=== PATIENT | female | born 1940 | race Caucasian/White ===

== ENCOUNTER 2019-05-27 12:08 | Outpatient (NON) | payer OTHER, SELFPAY | END 2019-12-28 08:18 | disposition home or self-care (01) | PROVIDERS: PCP Family Medicine; Visit Provider Orthopaedic Surgery | DX: T84.84XD Pain due to internal orthopedic prosthetic devices, implants and grafts, subsequent encounter (principal); Z96.651 Presence of right artificial knee joint | CPT/HCPCS: 87070; 87075; 87205 ==

== ENCOUNTER 2019-12-07 08:02 | Outpatient (CLI) | payer OTHER, SELFPAY ==
--- NOTE | ~2019-12-07 | NM_ITS ---
EXAMINATION: NM bone scan whole body DATE: 12/07/2019 11:43 INDICATION: Pain due to internal orthopedic prosthetic devices. TECHNIQUE: 25 mCi Tc-99m HDP was administered intravenously. Delayed whole-body scintigrams were obt ained. COMPARISON: Right knee radiographs 09/13/2019, CT 05/20/2019, chest 2 views 01/12/2019 FINDINGS: There is a total right knee arthroplasty. There is increased activity in right patella. The re is increased activity in distal femur and proximal tibia adjacent to the right knee arthroplasty. There is increased activity at right sternoclavicular joint correlating with osteoarthritis on radiog raphs. There is increased activity at the acromioclavicular joints correlating with osteoarthritis on radiographs. There is multifocal increased activity in thoracic spine correlating with spondylosis o n radiographs. There is joint-centered increased activity in the hands and in left knee and left foot without radiographic comparison, likely osteoarthritis. IMPRESSION: 1. Total right knee arthroplasty. Increased activity adjacent to the arthroplasty is not specific and may be seen with loosening or infection or may be a normal finding. Reviewed, dictated and finalized at location B. IMPRESSION: 1. Total right knee arthroplasty. Increased activity adjacent to the arthroplas ty is not specific and may be seen with loosening or infection or may be a norm al finding.
== END 2019-12-07 08:03 | disposition home or self-care (01) ==
PROVIDERS: PCP Emergency Medicine; Visit Provider Orthopaedic Surgery
DX: M79.18 Myalgia, other site (principal); T84.84XA Pain due to internal orthopedic prosthetic devices, implants and grafts, initial encounter; Z96.651 Presence of right artificial knee joint
CPT/HCPCS: 78306; A9561

== ENCOUNTER → 2019-12-09 12:57 | Outpatient (CLI) | payer OTHER, SELFPAY ==
--- NOTE | ~2019-12-09 | DEXA_ITS ---
Bone Density Report Name: Viktoriya Robb I Age: 79 Sex: Female Ethnicity: White Date of : 1940 Indication: osteopenia; height loss; hysterectomy; Referring Provider: MORIAH PRASAD Study: Bone densitometry was performed. Exam Date: December 09, 2019 Accession number: [id number] Bone Density: Region BMD T-score Z-score Classification AP Spine (L1-L4) 0.769 -2.5 0.1 Osteoporosis Femoral Neck (Left) 0.795 -0.5 1.8 Normal Total Hip (Left) 0.672 -2.2 -0.2 Osteopenia Femoral Neck (Right) 0.556 -2.6 -0.4 Osteoporosis Total Hip (Right) 0.615 -2.7 -0.7 Osteoporosis Total Hip Mean 0.644 -2.5 -0.5 Osteopenia World Health Organization criteria for BMD impression classify patients as: Normal (T-score at or above -1.0), Osteopenia (T-score between -1.0 and -2.5), or Osteoporosis (T-score at or below -2.5). 10-year Fracture Risk: FRAX not reported because: Some T-score for Spine Total or Hip Total or Femoral Neck at or below -2.5 Previous Exams: Region Exam Age BMD T-score BMD Change BMD Change Date g/cm2 vs Baseline vs Previous AP Spine(L1-L4) 12/09/2019 79 0.769 -2.5 -0.016 -0.016 11/19/2013 73 0.785 -2.4 Total Hip(Left) 12/09/2019 79 0.672 -2.2 -0.075* -0.075* 11/19/2013 73 0.746 -1.6 Total Hip(Right) 12/09/2019 79 0.615 -2.7 -0.125* -0.125* 11/19/2013 73 0.740 -1.7 *Denotes significance at 95% confidence level, LSC for AP Spine = 0.022 g/cm2, LSC for Total Hip = 0.027 g/cm2 Clinical Information Provided by Patient: Has the following medical conditions: Hysterectomy Patient maximum height was 61.5 Menopause Age: 26 No regular weight bearing exercise Drinks caffeinated beverages Onset of menses at age 11 Number of children 3 Impression: The patient has osteoporosis, based on the Right Total Hip T-score. The BMD for the Total Hip(Left) decreased, changing by -0.075 since the last DXA exam. The BMD for the Total Hip(Right) decreased, changing by -0.125 since the last DXA exam. Discussion: INCREASED RISK OF FRACTURE. BONE DENSITY IS UNDESIRABLY LOW AT ONE OR MORE SKELETAL SITES, CONSISTENT WITH POSTMENOPAUSAL OSTEOPOROSIS. This patient's lowest T-score meets the World Health Organization's (WHO) criteria for osteoporosis at one or more sites (T-score -2.5 or below). In untreated patients, the risk of osteoporotic fracture increases approximately two-fold for each 1.0 SD decrease in
--- NOTE | ~2019-12-09 | MM_ITS ---
EXAMINATION: MM screening singh BI w tita HISTORY: Screening TECHNIQUE: Craniocaudal and mediolateral oblique 3-D tomosynthesis images were obtained and synthetic 2-D images were generated. CAD analysis was submitted and interpreted. COMPARISON: Comparison to multiple prior studies sequentially, with oldest reviewed study dated 09/21. BREAST PARENCHYMAL COMPOSITION: There are scattered areas of fibroglandular density. FINDINGS: There is no evidence of suspicious mass, calcification, or architectural distortion to sugg est malignancy in either breast. There has been no suspicious interval change. IMPRESSION: 1. No mammographic evidence of malignancy. 2. Recommend routine screening mammography in one year. BI-RADS Category 1: Negative Reviewed, dictated and finalized at location A.
== END ==
PROVIDERS: PCP Emergency Medicine; Visit Provider Emergency Medicine
DX: Z12.31 Encounter for screening mammogram for malignant neoplasm of breast (principal); Z78.0 Asymptomatic menopausal state; M85.89 Other specified disorders of bone density and structure, multiple sites; M81.0 Age-related osteoporosis without current pathological fracture
CPT/HCPCS: 77063; 77067; 77080

== ENCOUNTER 2019-12-27 01:34 | Outpatient (CLI) | payer OTHER, SELFPAY ==
[2019-12-27 16:17] LABS: SARS-CoV-2 RNA PCR Negative
== END 2019-12-27 01:35 | disposition home or self-care (01) ==
LOC: ANHCOVIDDT 01:34
PROVIDERS: PCP Emergency Medicine; Visit Provider Orthopaedic Surgery
DX: Z01.812 Encounter for preprocedural laboratory examination (principal); Z20.828 Contact with and (suspected) exposure to other viral communicable diseases
CPT/HCPCS: 87635; C9803; U0003

== ENCOUNTER 2019-12-30 19:00 | Observation (INO) | payer OTHER, SELFPAY ==
[2019-12-23 10:38] VITALS: BMI 23.2
[2019-12-29] VITALS (12 sets, daily range): BP systolic 102–157; BP diastolic 53–84; PULSE 80–115; RESP 12–20; TEMP 36–36.9; O2SAT 92–100; BMI 30.4
--- NOTE | 2019-12-29 06:47 | WPDANESEPPF ---
Anes - Initial Pre Proc Eval Procedure: Operation Date: 12/29/19 07:30 Proposed Procedures p Right Patella Resurfacing With Poly Exchange - Adonay Vaca MD Date/Time: 12/29/19 06:47 Surgeon: Adonay Vaca MD Pre Op Diagnosis: Right Patella Femoral Arthritis Patient Data Age: 79 Gender: F Height: 5 ft Weight: 53.99 kg Allergies Allergy/AdvReac Type Severity Reaction Status Date / Time celecoxib Allergy Unknown stomach Verified 12/23/19 10:31 pain glimepiride Allergy Unknown Diarrhea Verified 12/23/19 10:31 meloxicam Allergy Unknown diarrhea Verified 12/23/19 10:31 metformin Allergy Unknown Diarrhea Verified 12/23/19 10:31 sitagliptin Allergy Unknown unknown Verified 12/23/19 10:31 Wmumlqa-Sfe-Mkr Reductase Allergy Unknown myalgia Verified 12/23/19 10:31 Inhibitor Home Medications Medication Instructions Recorded Confirmed Type amlodipine 10 mg tablet 10 mg PO DAILY #90 tablet 05/19/19 12/23/19 Rx blood sugar diagnostic #300 each 06/09/19 12/13/19 Rx quetiapine 25 mg tablet 25 mg PO HS tablet 11/05/19 12/23/19 History chlorhexidine gluconate 4 % 1 applic TOPICAL ONCE #237 ml 12/14/19 12/23/19 Rx topical liquid lisinopril 10 mg tablet 10 mg PO DAILY #90 tablet 12/15/19 12/23/19 Rx levothyroxine 100 mcg capsule 100 mcg PO DAILY #90 cap 12/17/19 12/23/19 Rx alendronate 70 mg tablet 70 mg PO WEEKLY #30 tablet 12/20/19 12/23/19 Rx clonazepam 0.5 mg PO .QHS PRN 12/23/19 12/23/19 History Patient hx anesthesia problems: none Family hx anesthesia problems: none PMFSH Past Medical History Medical History Cataracts, bilateral Chicken pox Hernia HTN (hypertension) Hypoglycemia Kidney stones (~2015) Psychiatric care PTSD (post-traumatic stress disorder) Thyroid disorder Twisting of colon on long axis (~2000) Vitamin D deficiency disease Surgical History Surgical History H/O thyroidectomy (~2008) History of appendectomy (~1949) History of hysterectomy (~1970) History of Min fundoplication (~2014) History of removal of both ovaries (~1983) Family History Family History Father Acute myocardial infarction Family history of coronary artery disease, Onset Age: 56 Mother Acute myocardial infarction Family history of malignant neoplasm of ovary Other Diabetes mellitus Family history of blood dyscrasia Family history of cardiovascular disease Family history of malignant neoplasm Hypertension Social History Social History Smoking status: Never smoker Alcohol intake: never Substance use: current Substance use type: marijuana Other substance usage details: ONE OR TWO HITS EVERY NIGHT TO HELP SLEEP X 40 YRS Living arrangements: alone Spiritual care concerns: No Anes - Eval Final PreProcedure Day of Procedure 12/29/19 06:47 Patient weight: normal Heart: regular rate and rhythm Lungs: clear to auscultation Airway: Mallampati scale class II Neurological: alert and oriented Last oral intake: >/= 8 hours ASA classification: III Emergent: no Anesthetic plan: proceed Anesthesia type and monitoring: general LMA and standard monitoring Informed Consent: The patient's anesthetic plan and its attendant risks and benefits were discussed with the patient/family/POA. Questions were solicited and answers provided to the satisfaction of the patient/family/POA.
[2019-12-29] MEDS: ACETAMINOPHEN 500 MG TABLET 1000 MG PO (06:48)
[2019-12-29] MEDS: LACTATED RINGERS 1,000 ML 30 ML IV CONT (06:50)
--- NOTE | 2019-12-29 07:22 | WPDHPUPDATE1 ---
History and Physical Update Update Date/Time: 12/29/19 07:22 History and Physical has been reviewed, including an updated exam of the patient. There are NO changes in the patient's condition. Risks, benefits, and alternatives have been discussed and questions answered. Patient agrees to proceed with procedure.
[2019-12-29] MEDS: ceFAZolin 2 GM/D5W 50 ML 2 GM/50 ML BAG IVPB ×3 (07:27→23:16)
[2019-12-29] MEDS: TRANEXAMIC ACID 1,000 MG/10 ML AMPUL 1000 MG IV PUSH (07:58)
--- NOTE | 2019-12-29 10:30 | PM.OP ---
Procedure Note - Brief Procedure Note - Brief Date of procedure: 12/29/19 Pre-op diagnosis: Right Patella Femoral Arthritis Post-op diagnosis: same Procedure performed: right knee patella resurfacing with poly exchange. Anesthesia: GLMA Surgeon: Adonay Vaca MD Estimated blood loss (mL): 50 Drains: No Packing: No Pathology: none sent Complications: No immediate complications Condition: stable Disposition: PACU
--- NOTE | 2019-12-29 10:31 | PM.PROC ---
Procedure Note - Detailed Date of procedure: 12/29/19 Pre-op diagnosis: Right Patella Femoral Arthritis Post-op diagnosis: same Procedure performed: RIGHT PATELLA RESURFACING WITH POLY EXCHANGE Description of procedure: PATIENT WAS TAKEN TO THE OR AND GEN ANESTHESIA WAS PREFORMED. THE RIGHT KNEE WAS PREPPED AND DRAPED IN THE STERILE FASHION. THE INCISION WAS MADE OVER THE OLD SCAR. ARTHROTOMY WAS MADE AND THE PATELLA WAS EVERTED. THE PATELLA WAS PREPARED AND EXPOSED. THE THICKNESS OF THE PATELLA WAS 22 MM. ABOUT 6.5 MM WERE REMOVED FROM THE PATELLA USING A CUTTING GUIDE. A 31 MM PATELLA BUTTON GUIDE WAS USED TO DRILL 3 HOLES IN THE MOST MEDIAL 1/2 OF THE PATELLA. A PATELLA IMPLANT TRIAL MEASURING 31 MM WITH 6.3 MM OF THICKNESS WAS PLACED. THE OLD POLY COMPONENT WAS REMOVED FROM THE TIBIAL TRAY. A 10 MM CR POLY TRIAL WAS PLACED. THE KNEE CAME OUT TO FULL EXTENSION. THE PATELLA TRACKED WELL WITH NO TILT. THE KNEE WAS WELL BALANCED IN FLEXION AND EXTENSION WITH VARUS AND VALGUS STRESS. THE TRIAL COMPONENTS WERE REMOVED. THE KNEE WAS IRRIGATED THOROUGHLY. THE FEMORAL AND TIBIAL COMPONENTS WERE CHECKED AT THE BONE CEMENT INTERFACE AND THE COMPONENT CEMENT INTERFACE AND THERE WAS NO DISRUPTION OF THE IMPLANT OR ANY LOOSENING. A 10 MM CR POLY COMPONENT WAS LOCKED IN TO PLACE. A 31 MM PATELLA IMPLANT WAS CEMENTED IN TO PLACE. THE KNEE WAS TAKEN THROUGH A ROM AGAIN AND FOUND TO BE STABLE WITH GOOD TRACKING OF THE PATELLA AND NO TILT. VARUS VALGUS STABILITY WAS ASSESSED AND THE KNEE WAS STABLE. A CALIPER WAS USED TO MEASURE THE THICKNESS OF THE PATELLA WITH THE IMPLANT AND IT MEASURED 22 MM THUS RESTORING THE ORIGINAL PATELLA THICKNESS PRIOR TO ARTHROPLASTY. THE WOUND WAS THEN IRRIGATED FOR 3 MIN USING STERILE BETADINE AND WATER THEN WASHED OUT THOROUGHLY. THE ARTHROTOMY WAS REPAIRED WITH 1 VICRYL, THE SUB CUTANEOUS LAYER WITH 2-0 VICRYL AND THE SKIN WITH SOLITARIO. STERILE DRESSING WAS APPLIED WITH. PATIENT WAS EXTUBATED. Anesthesia: GLMA Surgeon: Adonay Vaca MD Estimated blood loss (mL): 50 Drains: No Complications: No immediate complications Condition: stable Disposition: PACU
[2019-12-29] MEDS: ONDANSETRON INJ 4 MG/2 ML VIAL IV PUSH ×3 (10:48→20:48)
[2019-12-29 11:02] LABS: Glucose Point of Care 203 (65-105)
[2019-12-29] MEDS: diphenhydrAMINE HCl INJ 50 MG/ML VIAL 25 MG IV PUSH (11:15)
[2019-12-29] MEDS: MORPHINE SULFATE 4 MG/ML INJ IV PUSH (12:04)
[2019-12-29] MEDS: oxyCODONE/ACETAMINOPHEN 5-325 MG TABLET 1 TABLET PO ×2 (16:13→20:47)
[2019-12-29] MEDS: PHARMACIST COMMUNICATION ORDER 1 EACH XX (16:15)
[2019-12-29] MEDS: DOCUSATE SODIUM 100 MG CAPSULE PO (16:16)
[2019-12-29] MEDS: CELECOXIB 200 MG CAPSULE PO (18:53)
[2019-12-29] MEDS: FAMOTIDINE 20 MG TABLET PO (20:38)
[2019-12-29] MEDS: QUEtiapine FUMARATE 25 MG TABLET PO (20:38)
--- NOTE | 2019-12-29 20:44 | PM.IMCN ---
Assessment and Plan Assessment and plan (1) S/P right knee surgery: Code(s): Z98.890 - Other specified postprocedural states Status: Acute Assessment and Plan: postop care per Dr. Vaca. DVT prophylaxis per Dr. Vaca. (2) High cholesterol: Code(s): E78.00 - Pure hypercholesterolemia, unspecified Status: Acute (3) PTSD (post-traumatic stress disorder): Code(s): F43.10 - Post-traumatic stress disorder, unspecified Status: Acute Assessment and Plan: patient stated that her whole family has PTSD. She is on clonazepam. (4) HTN (hypertension): Qualifiers: Hypertension type: essential hypertension Qualified Code(s): I10 - Essential (primary) hypertension Code(s): I10 - Essential (primary) hypertension Status: Acute Assessment and Plan: Continue with amlodipine. Continue with lisinopril for (5) Osteoporosis: Code(s): M81.0 - Age-related osteoporosis without current pathological fracture Status: Chronic Assessment and Plan: Continue with Fosamax (6) Depression: Code(s): F32.9 - Major depressive disorder, single episode, unspecified Status: Acute Assessment and Plan: patient stated that she was on some psych medication that did make her feel well so she is no longer on anything for depression but is on clonazepam for anxiety. it looks like she is on Seroquel. (7) Anxiety: Code(s): F41.9 - Anxiety disorder, unspecified Status: Acute Assessment and Plan: Continue with clonazepam (8) Hypothyroidism: Code(s): E03.9 - Hypothyroidism, unspecified Status: Chronic Assessment and Plan: continue with levothyroxine. [facility] Data of Consult Consult date: 12/29/19 Requesting Physician: Adonay Vaca MD Primary Care Provider: Jamal Jordan MD Consult Narrative Narrative: Viktoriya Robb is a 79 year old female Who was here on 01/2018 for right total knee arthroplasty per Dr. Vaca. The patient stated that she was having some right knee pain and was having difficulty bending her knee and having problems with mobility. She stated her pain was severe approximately a 7 Out of [address] Vaca on 05/14/2019 in the office. She was noted to have A possible effusion to that right knee. She did have a CT scan at that time. she was evaluated and found to have no effusion in her knee. the patient was taken to surgery today for right knee patella resurfacing with poly exchange. The patient is complaining of some mild discomfort but has been up walking with a walker today. Please see anesthesia an operative note. It was noted that she had no immediate complications. The hospitalist team has been consulted for medical management and I thank Dr. Vaca for this consult. Date of service 12/29/2019 Review of Systems Review of Systems: All systems reviewed & are unremarkable except as noted in HPI and below Constitutional: Constitutional: Reports as per HPI and Reports no additional constitutional complaints Eyes: Eyes: Reports as per HPI and Reports no additional eye complaints ENT: Reports system reviewed and no additional complaints, except as documented and Reports Normal hearing present Cardiovascular: Cardiovascular: Reports no additional cardiovascular complaints Respiratory: Respiratory: Reports no additional respiratory complaints and Reports no additional respiratory complaints Gastrointestinal: Gastrointestinal: Reports as per HPI and Reports no additional gastrointestinal complaints Musculoskeletal: Musculoskeletal: Reports no additional musculoskeletal complaints Integumentary/Breasts: Skin/Breast: Reports system reviewed and no additional complaints, except as docu and Reports as per HPI Neurologic: Reports system reviewed and no additional complaints, except as documented, Reports as per HPI and Reports Normal hearing present Psychia
[2019-12-29] MEDS: clonazePAM 0.5 MG TABLET PO (20:48)
--- NOTE | ~2019-12-30 | XR_ITS ---
EXAMINATION: XR knee RT 2V DATE: 12/29/2019 10:42 INDICATION: Total right knee arthroplasty. Postop. TECHNIQUE: 2 views of right knee were obtained. COMPARISON: Right knee radiographs 09/13/2019 FINDINGS: There is a total right knee arthroplasty with new patellar resurfacing in near-anatomic ali gnment. No periprosthetic lucency to suggest loosening or infection. No fracture. There is gas in the knee joint, consistent with recent surgery. Anterior skin taylor are noted. IMPRESSION: 1. Total right knee arthroplasty in near-anatomic alignment. Reviewed, dictated and finalized at location A.
[2019-12-30 01:33] VITALS: BP 110/53; PULSE 90; RESP 20; TEMP 37; O2SAT 99
[2019-12-30] MEDS: ONDANSETRON INJ 4 MG/2 ML VIAL IV PUSH ×2 (02:22→21:17)
[2019-12-30] MEDS: oxyCODONE/ACETAMINOPHEN 5-325 MG TABLET 1 TABLET PO ×5 (02:22→21:17)
[2019-12-30 05:33] VITALS: BP 112/56; PULSE 90; RESP 18; TEMP 36.9; O2SAT 99
[2019-12-30 05:53] LABS: Basophils Absolute Auto 0.1 K/mm3 (0.0-0.1); Basophils Percent Auto 0.5 % (0.2-1.2); Eosinophils Percent Auto 0.1 % (0-4.4); Hematocrit 29.4 % (37.0-47.0); Hemoglobin 9.6 g/dL (12.0-15.0); Immature Granulocyte Absolute 0.07 K/mm3 (0.00-0.031); Immature Granulocyte Percent A 0.7 % (0-0.5); Lymphocytes Absolute Auto 0.85 K/mm3 (0.9-3.2); Lymphocytes Percent Auto 8.3 % (18.3-44.2); Mean Corpuscular HGB Conc 32.7 g/dl (32-36); Mean Corpuscular Volume 91.9 fl (80-100); Mean Platelet Volume 12.2 fl (7.4-10.4); Monocytes Absolute Auto 0.8 K/mm3 (0.1-0.6); Neutrophils Absolute Auto 8.5 K/mm3 (1.3-6.7); Neutrophils Percent Auto 82.4 % (45.5-73.1); Platelet Count Result 195 k/mm3 (150-375); White Blood Count 10.3 K/mm3 (4.5-10.0)
[2019-12-30 06:04] LABS: Anion Gap 4 mmol/L (8-16); Blood Urea Nitrogen 15 mg/dL (7-17); Calcium 8.6 mg/dL (8.4-10.2); Carbon Dioxide 28 mmol/L (22-30); Chloride 105 mmol/L (98-107); Estimated CRCL calculation 39 ml/min; Estimated Glomerular Filt Rate 60; Glucose 117 mg/dL (65-105); Potassium 4.4 mmol/L (3.4-5.0); Sodium 137 mmol/L (137-145)
[2019-12-30] MEDS: LEVOTHYROXINE SODIUM 100 MCG TABLET PO (06:45)
[2019-12-30] MEDS: ceFAZolin 2 GM/D5W 50 ML 2 GM/50 ML BAG IVPB (06:46)
--- NOTE | 2019-12-30 07:37 | WPDANESPN ---
Anes - Prog Note Post-Op Date/Time: 12/30/19 07:37 Cardiovascular status: normal Respiratory status: normal Airway patency: baseline Mental status: baseline Post-Op hydration status: normal Vital Signs: Last Vital Signs Temp 36.9 C 12/30/19 05:33 Pulse 90 12/30/19 05:33 Resp 18 12/30/19 05:33 BP 112/56 L 12/30/19 05:33 Pulse Ox 99 12/30/19 05:33 I/O: Intake & Output 12/29/19 12/29/19 12/30/19 15:59 23:59 07:59 Intake Total 200 660 290 Output Total 450 Balance 200 210 290 Laboratory Tests 12/30/19 05:13 12/30/19 05:13 12/29/19 12/30/19 12/30/19 11:00 05:13 05:13 WBC 10.3 H RBC 3.20 L Hgb 9.6 L Hct 29.4 L MCV 91.9 MCH 30.0 MCHC 32.7 RDW 12.0 Plt Count 195 MPV 12.2 H Immature Gran % (Auto) 0.7 H Neut % (Auto) 82.4 H Lymph % (Auto) 8.3 L [place] % (Auto) 8.0 Eos % (Auto) 0.1 Baso % (Auto) 0.5 Lymph # (Auto) 0.85 L [place] # (Auto) 0.8 H Eos # (Auto) 0.0 Baso # (Auto) 0.1 Abs Immat Gran (auto) 0.07 H Absolute Neuts (auto) 8.5 H Absolute Nucleated RBC 0.0 Nucleated RBC % 0.0 Sodium 137 Potassium 4.4 Chloride 105 Carbon Dioxide 28 Anion Gap 4 L BUN 15 Creatinine 0.90 Estim Creat Clear Calc 39 Estimated GFR 60 Glucose 117 H POC Capillary Glucose 203 H Calcium 8.6 Post-procedural complaints: none Patient Feedback: Patient satisfied with anesthetic care.
[2019-12-30] MEDS: CELECOXIB 200 MG CAPSULE PO ×2 (08:20→16:30)
[2019-12-30] MEDS: FAMOTIDINE 20 MG TABLET PO ×2 (08:20→21:15)
[2019-12-30] MEDS: lisinopriL 10 MG TABLET PO (08:21)
[2019-12-30] MEDS: ASPIRIN 325 MG ENTERIC TABLET 650 MG PO (08:21)
[2019-12-30] MEDS: DOCUSATE SODIUM 100 MG CAPSULE PO ×2 (08:22→16:30)
[2019-12-30] MEDS: amLODIPine BESYLATE 5 MG TABLET 10 MG PO (08:22)
[2019-12-30 09:33] VITALS: BP 136/61; PULSE 87; RESP 18; TEMP 36.4; O2SAT 97
--- NOTE | 2019-12-30 11:04 | PM.IMPN ---
Progress Note: A&P Assessment and Plan (1) S/P right knee surgery: Code(s): Z98.890 - Other specified postprocedural states Status: Acute Assessment and Plan: postop care per Dr. Vaca. DVT prophylaxis per Dr. Vaca. Medical stable for discharge, pt can continue current medications on discharge. Hopeful discharge soon DR Vaca to decide. (2) High cholesterol: Code(s): E78.00 - Pure hypercholesterolemia, unspecified Status: Chronic Assessment and Plan: Diet controlled (3) PTSD (post-traumatic stress disorder): Code(s): F43.10 - Post-traumatic stress disorder, unspecified Status: Chronic Assessment and Plan: She is on clonazepam. (4) HTN (hypertension): Qualifiers: Hypertension type: essential hypertension Qualified Code(s): I10 - Essential (primary) hypertension Code(s): I10 - Essential (primary) hypertension Status: Chronic Assessment and Plan: Continue with amlodipine. Continue with lisinopril for HTN. Bp is stable at 136/61 (5) Osteoporosis: Code(s): M81.0 - Age-related osteoporosis without current pathological fracture Status: Chronic Assessment and Plan: Continue with Fosamax (6) Depression: Code(s): F32.9 - Major depressive disorder, single episode, unspecified Status: Chronic Assessment and Plan: Patient is on Quetiapine. (7) Anxiety: Code(s): F41.9 - Anxiety disorder, unspecified Status: Chronic Assessment and Plan: Continue with clonazepam (8) Hypothyroidism: Code(s): E03.9 - Hypothyroidism, unspecified Status: Chronic Assessment and Plan: Continue with levothyroxine. Subjective Date/time seen: 12/30/19 11:04 Interval history: Pleasant lady admitted yesterday for right total knee arthroplasty per Dr. Vaca. Pt is post op day 1 and is doing well. Pt is sp Right patella resurfacing with poly exchange. Pt denies any knee pain. Review of Systems Review of Systems: All systems reviewed & are unremarkable except as noted in HPI and below Constitutional: Constitutional: Denies lethargy and Denies weakness Cardiovascular: Cardiovascular: Denies no additional cardiovascular complaints Respiratory: Respiratory: Denies no additional respiratory complaints Gastrointestinal: Gastrointestinal: Denies no additional gastrointestinal complaints Genitourinary: Genitourinary: Denies no additional female genitourinary complaints Neurologic: Denies system reviewed and no additional complaints, except as documented Psychiatric: Psychiatric: Denies no additional psychiatric complaints Exam Const: General: cooperative, healthy appearing, comfortable, no acute distress, well developed, alert, awake and Physically active Nutritional Appearance: average body habitus and thin Orientation/consciousness: oriented to person, oriented to place, oriented to time and patient oriented x3 Limitations: no limitations Resp: Effort & Inspection: normal respiratory effort Auscultation: clear to auscultation bilaterally Percussion: percussion normal Cardio: Palpation: normal PMI Rate: regular rate Rhythm: regular rhythm Heart sounds: S1 normal heart sound present and S2 normal heart sound present Peripheral pulses: Peripheral pulses 2+ throughout Neuro: General: oriented to person, oriented to place, oriented to time and patient oriented x3 Cranial nerves: Yes Equal, round and reactive pupils present and Yes Normal hearing present Cognition (Neuro): normal cognition Speech: normal speech Sensory Exam: normal sensation Extrem: Right lower extremity: knee ( dressing to right knee dry and intact. Without drain Santosh wrap intact) Other: pulses present in R foot good sensation in R foot Psych: Appearance: grossly normal Mental Status: mental status grossly normal Speech and movement: Normal speech and movement present Affect: normal affect A
[2019-12-30 11:08] VITALS: BMI 30.4
--- NOTE | 2019-12-30 12:06 | PCNSR ---
On 12/30/19, the student, Rah Escobedo, provided care and completed [employer] [facility] documentation on this patient. I have reviewed the student's documentation and agree with the findings.
--- NOTE | 2019-12-30 12:34 | PM.PNORT ---
Progress Note: A&P Assessment and Plan (1) Total knee replacement status: Qualifiers: Laterality: right Qualified Code(s): Z96.651 - Presence of right artificial knee joint Code(s): Z96.659 - Presence of unspecified artificial knee joint Status: Acute Assessment and Plan: POD #1: RIGHT PATELLA RESURFACING WITH POLY EXCHANGE Continue PT/OT. WBAT. Walker. Continue pain control. Ice. FELICITAS wrap. No pillows under knee. DVT prophylaxis with Aspirin. SCDs. Incentive Spirometry. Monitor dressing. Change prior to discharge. Dispo: Home with Home Health pending progress with PT/OT Subjective Subjective Date/Time Seen: 12/30/19 12:34 POD#1: RIGHT PATELLA RESURFACING WITH POLY EXCHANGE Review of Systems Constitutional: Constitutional: Denies chills, Denies fatigue, Denies fever(s) and Denies night sweats Cardiovascular: Cardiovascular: Denies chest pain and Denies lightheadedness Respiratory: Respiratory: Denies cough, Denies dyspnea and Denies wheezing Genitourinary: Genitourinary: Denies urinary hesitancy Musculoskeletal: Musculoskeletal: Reports arthralgias (right knee ) and Reports joint swelling (right knee ) Exam Const: General: comfortable and no acute distress Resp: Effort & Inspection: normal respiratory effort Cardio: Rate: regular rate Rhythm: regular rhythm GI: Inspection: non-distended Auscultation: normal bowel sounds Skin: General skin exam: normal color Wounds: wounds noted (incision c/d/i) Neuro: Cognition (Neuro): normal cognition Speech: normal speech Sensory Exam: normal sensation Extrem: Right lower extremity: knee (incision c/d/i) Details: tenderness (diffuse knee ), swelling Location: of the patella, abnormal ROM (limited due to recent surgical intervention ), knee ligament exam normal and ecchymosis (mild ); no deformity, lower leg (negative lesley's sign ) Details: no edema, ankle (+ankle dorsiflexion/plantarflexion ) and foot (2+ pedal pulses ) Details: normal capillary refill and vascular exam Details: dorsalis pedis pulse present Psych: Mental Status: mental status grossly normal Affect: normal affect Objective Data Vital Signs Vital Signs: Vital Signs - 24 hr 12/29/19 13:33 12/29/19 17:33 12/29/19 21:33 Temperature 36.4 C L 36.9 C 36.6 C Pulse Rate 105 H 94 110 H Respiratory Rate 19 17 20 Blood Pressure 138/84 134/67 157/81 H Pulse Oximetry 100 99 98 12/30/19 01:33 12/30/19 05:33 12/30/19 09:33 Temperature 37.0 C 36.9 C 36.4 C Pulse Rate 90 90 87 Respiratory Rate 20 18 18 Blood Pressure 110/53 L 112/56 L 136/61 Pulse Oximetry 99 99 97 Intake/Output Intake/Output: Intake & Output 12/27/19 12/28/19 12/29/19 12/30/19 23:59 23:59 23:59 23:59 Intake Total 910 290 Output Total 450 300 Balance 460 -10 Meds/Results Medications: Active Medications Generic Name Dose Route Start Last Admin Trade Name Freq PRN Reason Stop Dose Admin Acetaminophen 1,000 mg 12/29/19 11:48 Tylenol Tablet PO Q6H PRN Mild Pain (1-3) Alendronate Sodium 70 mg 01/01/20 06:30 Fosamax PO Sa@0630 [facility] Amlodipine Besylate 10 mg 12/30/19 09:00 12/30/19 08:22 Norvasc PO 10 mg DAILY [facility] Administration Aspirin 650 mg 12/30/19 09:00 12/30/19 08:21 Aspirin Ec PO 650 mg DAILY [facility] Administration Celecoxib 200 mg 12/29/19 17:00 12/30/19 08:20 Celebrex PO 200 mg BIDWM [facility] Administration Clonazepam 0.5 mg 12/29/19 11:48 12/29/19 20:48 Klonopin Tablet PO 0.5 mg HS PRN Administration insomnia Diazepam 5 mg 12/29/19 11:48 Valium Po PO Q8H PRN Spasms Diphenhydramine HCl 25 mg 12/29/19 11:48 Benadryl Inj IV PUSH Q6H PRN Itching Docusate Sodium 100 mg 12/29/19 17:00 12/30/19 08:22 Colace Capsule PO 100 mg BID [facility] Administration Famotidine 20 mg 12/29/19 21:00 12/30/19 08:20 Pepcid PO 20 mg Q12HR [facility] Administration Le
[2019-12-30 13:33] VITALS: BP 129/70; PULSE 81; RESP 18; TEMP 36.4; O2SAT 98
[2019-12-30 18:24] VITALS: BP 135/72; PULSE 85; RESP 18; TEMP 37.3; O2SAT 99
[2019-12-30] MEDS: QUEtiapine FUMARATE 25 MG TABLET PO (21:15)
[2019-12-30] MEDS: clonazePAM 0.5 MG TABLET PO (21:17)
[2019-12-30 21:32] VITALS: BP 121/66; PULSE 85; RESP 16; TEMP 37.3; O2SAT 97
[2019-12-31 02:00] VITALS: BP 127/66; PULSE 86; RESP 12; TEMP 37; O2SAT 98
[2019-12-31] MEDS: oxyCODONE/ACETAMINOPHEN 5-325 MG TABLET 1 TABLET PO ×3 (02:47→14:19)
[2019-12-31 05:30] VITALS: BP 123/60; PULSE 82; RESP 16; TEMP 37.6; O2SAT 94
[2019-12-31] MEDS: LEVOTHYROXINE SODIUM 100 MCG TABLET PO (07:27)
[2019-12-31] MEDS: amLODIPine BESYLATE 5 MG TABLET 10 MG PO (08:43)
[2019-12-31] MEDS: FAMOTIDINE 20 MG TABLET PO (08:43)
[2019-12-31] MEDS: ASPIRIN 325 MG ENTERIC TABLET 650 MG PO (08:43)
[2019-12-31] MEDS: DOCUSATE SODIUM 100 MG CAPSULE PO (08:43)
[2019-12-31] MEDS: lisinopriL 10 MG TABLET PO (08:43)
[2019-12-31] MEDS: CELECOXIB 200 MG CAPSULE PO (08:43)
--- NOTE | 2019-12-31 09:10 | PM.PNORT ---
Progress Note: A&P Assessment and Plan (1) Total knee replacement status: Qualifiers: Laterality: right Qualified Code(s): Z96.651 - Presence of right artificial knee joint Code(s): Z96.659 - Presence of unspecified artificial knee joint Status: Acute Assessment and Plan: POD #2: RIGHT PATELLA RESURFACING WITH POLY EXCHANGE Continue PT/OT. WBAT. Walker. Continue pain control. Ice. FELICITAS wrap. No pillows under knee. DVT prophylaxis with Aspirin. SCDs. Incentive Spirometry. Monitor dressing. Change today before d/c Dispo: Home with Home Health likely today pending progress with PT/OT and medical clearance. Subjective Subjective Date/Time Seen: 12/31/19 09:10 POD#2: RIGHT PATELLA RESURFACING WITH POLY EXCHANGE No new complaints. Pain increased from yesterday, controlled with medication. Working well with PT/OT. Wants to go home today. Review of Systems Constitutional: Constitutional: Denies chills, Denies fatigue, Denies fever(s) and Denies night sweats Cardiovascular: Cardiovascular: Denies chest pain and Denies lightheadedness Respiratory: Respiratory: Denies cough, Denies dyspnea and Denies wheezing Genitourinary: Genitourinary: Denies urinary hesitancy Musculoskeletal: Musculoskeletal: Reports arthralgias (right knee ) and Reports joint swelling (right knee ) Exam Const: General: comfortable and no acute distress Resp: Effort & Inspection: normal respiratory effort Cardio: Rate: regular rate Rhythm: regular rhythm GI: Inspection: non-distended Auscultation: normal bowel sounds Skin: General skin exam: normal color Wounds: wounds noted (incision c/d/i) Neuro: Cognition (Neuro): normal cognition Speech: normal speech Sensory Exam: normal sensation Extrem: Right lower extremity: knee (incision c/d/i) Details: tenderness (diffuse knee ), swelling Location: of the patella, abnormal ROM (limited due to recent surgical intervention ), knee ligament exam normal and ecchymosis (mild ); no deformity, lower leg (negative lesley's sign ) Details: no edema, ankle (+ankle dorsiflexion/plantarflexion ) and foot (2+ pedal pulses ) Details: normal capillary refill and vascular exam Details: dorsalis pedis pulse present Psych: Mental Status: mental status grossly normal Affect: normal affect Objective Data Vital Signs Vital Signs: Vital Signs - 24 hr 12/30/19 09:33 12/30/19 13:33 12/30/19 18:24 Temperature 36.4 C 36.4 C L 37.3 C Pulse Rate 87 81 85 Respiratory Rate 18 18 18 Blood Pressure 136/61 129/70 135/72 Pulse Oximetry 97 98 99 12/30/19 21:32 12/31/19 02:00 12/31/19 05:30 Temperature 37.3 C 37.0 C 37.6 C Pulse Rate 85 86 82 Respiratory Rate 16 12 16 Blood Pressure 121/66 127/66 123/60 Pulse Oximetry 97 98 94 Intake/Output Intake/Output: Intake & Output 12/28/19 12/29/19 12/30/19 12/31/19 23:59 23:59 23:59 23:59 Intake Total 910 1075 250 Output Total 450 715 800 Balance 460 360 -550 Meds/Results Medications: Active Medications Generic Name Dose Route Start Last Admin Trade Name Freq PRN Reason Stop Dose Admin Acetaminophen 1,000 mg 12/29/19 11:48 Tylenol Tablet PO Q6H PRN Mild Pain (1-3) Alendronate Sodium 70 mg 01/01/20 06:30 Fosamax PO Sa@0630 [facility] Amlodipine Besylate 10 mg 12/30/19 09:00 12/31/19 08:43 Norvasc PO 10 mg DAILY MANISH Administration Aspirin 650 mg 12/30/19 09:00 12/31/19 08:43 Aspirin Ec PO 650 mg DAILY MANISH Administration Celecoxib 200 mg 12/29/19 17:00 12/31/19 08:43 Celebrex PO 200 mg BIDWM MANISH Administration Clonazepam 0.5 mg 12/29/19 11:48 12/30/19 21:17 Klonopin Tablet PO 0.5 mg HS PRN Administration insomnia Diazepam 5 mg 12/29/19 11:48 Valium Po PO Q8H PRN Spasms Diphenhydramine HCl 25 mg 12/29/19 11:48 Benadryl Inj IV PUSH Q6H PRN Itching Docusate Sodium 100 mg 12/29/19 17:00 12/31/19 08:43
--- NOTE | 2019-12-31 10:27 | PM.IMPN ---
Progress Note: A&P Assessment and Plan (1) S/P right knee surgery: Code(s): Z98.890 - Other specified postprocedural states Status: Acute Assessment and Plan: Postop care per Dr. Vaca. DVT prophylaxis per Dr. Vaca. Medical stable for discharge, pt can continue current medications on discharge. Hopeful discharge today DR Vaca to decide. (2) High cholesterol: Code(s): E78.00 - Pure hypercholesterolemia, unspecified Status: Chronic Assessment and Plan: Diet controlled (3) PTSD (post-traumatic stress disorder): Code(s): F43.10 - Post-traumatic stress disorder, unspecified Status: Chronic Assessment and Plan: She is on clonazepam. (4) HTN (hypertension): Qualifiers: Hypertension type: essential hypertension Qualified Code(s): I10 - Essential (primary) hypertension Code(s): I10 - Essential (primary) hypertension Status: Chronic Assessment and Plan: Continue with amlodipine. Continue with lisinopril for HTN. Bp is stable at 123/60 (5) Osteoporosis: Code(s): M81.0 - Age-related osteoporosis without current pathological fracture Status: Chronic Assessment and Plan: Continue with Fosamax (6) Depression: Code(s): F32.9 - Major depressive disorder, single episode, unspecified Status: Chronic Assessment and Plan: Patient is on Quetiapine. (7) Anxiety: Code(s): F41.9 - Anxiety disorder, unspecified Status: Chronic Assessment and Plan: Continue with clonazepam (8) Hypothyroidism: Code(s): E03.9 - Hypothyroidism, unspecified Status: Chronic Assessment and Plan: Continue with levothyroxine. Subjective Date/time seen: 12/31/19 10:27 Interval history: Pleasant lady admitted yesterday for right total knee arthroplasty per Dr. Vaca. Pt is post op day 2 and is doing well. Pt is sp Right patella resurfacing with poly exchange. Pt wants to go home, but is having pain and swelling in her knee. Knee pain is 10/10 today. Seen by orthopedics hopeful discharge today. Pt is medically stable for discharge. Review of Systems Review of Systems: All systems reviewed & are unremarkable except as noted in HPI and below Cardiovascular: Cardiovascular: Denies no additional cardiovascular complaints Respiratory: Respiratory: Denies no additional respiratory complaints and Reports no additional respiratory complaints Gastrointestinal: Gastrointestinal: Reports as per HPI and Denies no additional gastrointestinal complaints Musculoskeletal: Musculoskeletal: Reports no additional musculoskeletal complaints Exam Const: General: cooperative and Physically active Orientation/consciousness: oriented to person, oriented to place, oriented to time and patient oriented x3 Resp: Effort & Inspection: normal respiratory effort Auscultation: clear to auscultation bilaterally Percussion: percussion normal Cardio: Rate: regular rate Rhythm: regular rhythm Heart sounds: S1 normal heart sound present and S2 normal heart sound present GI: Inspection: normal to inspection Auscultation: normal bowel sounds Neuro: General: oriented to person, oriented to place, oriented to time and patient oriented x3 Cranial nerves: Yes Equal, round and reactive pupils present and Yes Normal hearing present Cognition (Neuro): normal cognition Speech: normal speech Gait exam (Neuro): Normal gait present Motor exam (neuro): 5/5 motor strength present throughout Sensory Exam: normal sensation Extrem: General: normal to inspection Right upper extremity: normal to inspection Left upper extremity: normal to inspection Right lower extremity: edema Details: 2+ Left lower extremity: normal to inspection Other: R knee swollen small bruise limited ROM, pain on flexion of knee, calf no tenderness, Pulses present in R foot good sensation in R foot Psych: Appearance: grossly normal Mental S
[2019-12-31 10:39] VITALS: O2SAT 94
--- NOTE | 2019-12-31 12:10 | PM.DS ---
DS: Admitting Diagnosis Admitting Diagnosis Admitting Diagnosis: Right Patella Femoral Arthritis DS: Discharge Diagnosis Discharge Diagnosis (1) Total knee replacement status: Qualifiers: Laterality: right Qualified Code(s): Z96.651 - Presence of right artificial knee joint Code(s): Z96.659 - Presence of unspecified artificial knee joint Status: Acute Assessment and Plan: POD #2: RIGHT PATELLA RESURFACING WITH POLY EXCHANGE Continue PT/OT. WBAT. Walker. Continue pain control. Ice. FELICITAS wrap. No pillows under knee. DVT prophylaxis with Aspirin. SCDs. Incentive Spirometry. Monitor dressing. Change today before d/c Dispo: Home with Home Health likely today pending progress with PT/OT and medical clearance. DS: Summary Hospital Course Reason for hospitalization: RIGHT PATELLA RESURFACING WITH POLY EXCHANGE Hospital Course: 79-year-old female with a history of right knee pain status post right total knee replacement. She was admitted status post right patellar resurfacing with a poly exchange for postoperative medical management, pain control and PT / OT. She progressed well with PT OT and her pain has been well controlled. The hospitalist service was consulted for assistance with medical management. She was cleared from a medical standpoint to be discharged home. She was cleared with PT OT to be discharged home with home health. She does have some constipation which she reports is chronic in nature. She suffers from constipation at baseline and has not had a bowel movement since prior to surgery. She is on Linzess and Colace at this time. We will discharge her home with this medication as well. She denies abdominal pain, nausea or vomiting. Her abdomen is soft and nontender. She is to contact her primary care physician if no resolution of constipation in the next 1-[address] Vaca cleared patient for discharge home. Status at Discharge Cognitive/behavioral status at discharge: stable Functional status at discharge: uses cane/walker Overall status at discharge: patient is back to baseline Time Spent with Patient Time attestation: Total time spent providing and/or coordinating discharge services: Exam Const: General: comfortable and no acute distress Resp: Effort & Inspection: normal respiratory effort Cardio: Rate: regular rate Rhythm: regular rhythm GI: Inspection: non-distended Auscultation: normal bowel sounds Skin: General skin exam: normal color Wounds: wounds noted (incision c/d/i) Neuro: Cognition (Neuro): normal cognition Speech: normal speech Sensory Exam: normal sensation Extrem: Right lower extremity: knee (incision c/d/i) Details: tenderness (diffuse knee ), swelling Location: of the patella, abnormal ROM (limited due to recent surgical intervention ), knee ligament exam normal and ecchymosis (mild ); no deformity, lower leg (negative lesley's sign ) Details: no edema, ankle (+ankle dorsiflexion/plantarflexion ) and foot (2+ pedal pulses ) Details: normal capillary refill and vascular exam Details: dorsalis pedis pulse present Psych: Mental Status: mental status grossly normal Affect: normal affect Discharge Plan Discharge Consulting providers: Brennan Thibodeaux Discharging Clinician: Dora James Anticipated Discharge Date/Time: 12/31/19 15:00 Patient Disposition: Home Health Service Activity: may shower, no driving and follow weight bearing status Diet: as tolerated Wound Care Instructions: follow printed instructions Discharge Instructions: Per Care Coordination: Home with [facility]. PT/OT/RN for Treatment and Evaluation. [phone]. They will call you for an appointment to come to your home. Post Op Total Knee Replacement Instructions Dr. Adonay Vaca ?Your dressing will be changed prior to your discharge. You will be sent home with one additional dressing to be changed in 5 days by the home health RN. Your taylor wi
--- NOTE | 2019-12-31 16:00 | PC.NURSE ---
pt did not want flu shot at this time
== END 2019-12-31 16:20 | disposition home health service (06) ==
LOC: ANHSURGERY 19:03 → ANH2MED 19:03
PROVIDERS: Admitting Provider Orthopaedic Surgery; PCP Emergency Medicine; Visit Provider Orthopaedic Surgery
PROC: (CPT 27487; principal; 2019-12-29 07:30)
DX: M17.11 Unilateral primary osteoarthritis, right knee (principal); I10 Essential (primary) hypertension; E78.00 Pure hypercholesterolemia, unspecified; E89.0 Postprocedural hypothyroidism; F43.10 Post-traumatic stress disorder, unspecified; M81.0 Age-related osteoporosis without current pathological fracture; F41.8 Other specified anxiety disorders; Z79.84 Long term (current) use of oral hypoglycemic drugs; F12.90 Cannabis use, unspecified, uncomplicated; Z86.73 Personal history of transient ischemic attack (TIA), and cerebral infarction without residual deficits; Z87.891 Personal history of nicotine dependence
CPT/HCPCS: 27486; 36415; 73560; 80048; 85025; 97110; 97116; 97161; 97165; A9270; C1713; G0378; J0171; J0690; J1100; J1170; J1200; J2250; J2270; J2370; J2405; J2704; J2795; J3010; J7120

== ENCOUNTER 2020-01-04 15:28 | Observation (INO) | payer OTHER, SELFPAY ==
[2020-01-04] VITALS (36 sets, daily range): BP systolic 99–128; BP diastolic 47–81; PULSE 83–114; RESP 12–28; TEMP 36.6–36.9; O2SAT 93–100; BMI 23.6
--- NOTE | ~2020-01-04 | XR_ITS ---
EXAMINATION: XR abdomen/kub 1V INDICATION: Constipation and abdominal pain TECHNIQUE: Supine view of the abdomen is obtained. COMPARISON: 01/05/2020 FINDINGS: No definitely dilated loops of bowel are identified. There are phleboliths of the pelvis. N o free intraperitoneal gas is seen. There is moderate right hip osteoarthritis. IMPRESSION: 1. No dilated loops of bowel evident. Reviewed, dictated and finalized at location B.
--- NOTE | ~2020-01-04 | CT_ITS ---
EXAMINATION: CT abdomen pelvis w con DATE: 01/04/2020 17:41 INDICATION: Lower abdominal pain. Constipation for 2 days. Recent knee surgery. TECHNIQUE: Computed tomography (CT) of the abdomen and pelvis was performed with 100 cc Omnipaque 350 intravenous contrast. Automated exposure control and iterative reconstruction technique were employe d. Exam dose: 269.74 mGy-cm total exam DLP. COMPARISON: 04/22/2017 CT abdomen FINDINGS: No interval pulmonary mass density at the lung bases. Stable small nodular opacities are no charlette in the lingula and left lower lobe, unchanged since 04/22/2017, consistent with benign process. Very small sliding hiatal hernia. 1.5 cm left hepatic cyst. 5 mm right hepatic dome cyst. The liver is otherwise unremarkable. The gall bladder is present. No pericholecystic fluid or inflammation. No gallbladder wall thickening. No bile duct dilatation. No pancreatic mass lesion or calcification or ductal dilatation. Normal splenic siz e. Normal morphology of the adrenal glands. There are 2 small nonobstructing lower pole left renal calculi. No right urinary tract calculus or le ft ureteral calculus or hydroureteronephrosis on either side. The urinary bladder is unremarkable. Status post hysterectomy. There is atherosclerotic calcification of the abdominal aorta and branches but no abdominal aortic an eurysm. No intraperitoneal or retroperitoneal or pelvic mass lesion or adenopathy or ascites. There is a very prominent amount of fecal material throughout the colon. There is prominent widening of the sigmoid colon, up to 7 cm diameter, with thickening and pneumatosis of the sigmoid colon wall as well as pericolic fat stranding. The findings may be consistent with stercoral colitis. There are diverticula of the sigmoid and descending colon as well as some right colon diverticula; differential diagnosis for the pericolic stranding in the sigmoid colon area includes diverticulitis. No divertic ular abscess. No intraperitoneal free air. Diffuse idiopathic skeletal hyperostosis of the thoracic spine. Diffuse osteopenia. Benign lucent area of the left iliac bone with sclerotic margin. Osteoarthritis at both hips. IMPRESSION: Prominent sigmoid colon distention with fecal material, with associated thickening and p neumatosis of the sigmoid colon wall, suggesting stercoral colitis Diverticulosis of left and right colon. Differential diagnosis for the pericolic fat stranding in the sigmoid region includes sigmoid diverticulitis. No abscess is evident. Constipation Very small sliding hiatal hernia Status post hysterectomy 2 small nonobstructing lower pole left renal calculi Hepatic cysts Reviewed, dictated and finalized at [facility]. Reviewed, dictated and finalized at [facility]. IMPRESSION: Prominent sigmoid colon distention with fecal material, with assoc iated thickening and pneumatosis of the sigmoid colon wall, suggesting stercora l colitis Diverticulosis of left and right colon. Differential diagnosis for the pericoli c fat stranding in the sigmoid region includes sigmoid diverticulitis. No absce ss is evident. Constipation Very small sliding hiatal hernia Status post hysterectomy 2 small nonobstructing lower pole left renal calculi Hepatic cysts
[2020-01-04 16:04] LABS: Basophils Absolute Auto 0.1 K/mm3 (0.0-0.1); Basophils Percent Auto 0.6 % (0.2-1.2); Eosinophils Absolute Auto 0.1 K/mm3 (0-0.3); Eosinophils Percent Auto 0.8 % (0-4.4); Hematocrit 34.2 % (37.0-47.0); Hemoglobin 11.2 g/dL (12.0-15.0); Immature Granulocyte Absolute 0.07 K/mm3 (0.00-0.031); Immature Granulocyte Percent A 0.6 % (0-0.5); Lymphocytes Absolute Auto 1.78 K/mm3 (0.9-3.2); Lymphocytes Percent Auto 15.3 % (18.3-44.2); Mean Corpuscular HGB Conc 32.7 g/dl (32-36); Mean Corpuscular Hemoglobin 30.5 pg (26-34); Mean Corpuscular Volume 93.2 fl (80-100); Mean Platelet Volume 11.9 fl (7.4-10.4); Monocytes Absolute Auto 1.1 K/mm3 (0.1-0.6); Monocytes Percent Auto 9.5 % (2.6-8.5); Neutrophils Absolute Auto 8.5 K/mm3 (1.3-6.7); Neutrophils Percent Auto 73.2 % (45.5-73.1); Platelet Count Result 357 k/mm3 (150-375); Red Blood Count 3.67 M/mm3 (4.2-5.4); White Blood Count 11.6 K/mm3 (4.5-10.0)
[2020-01-04 16:11] LABS: Add Urine Microscopic? YES; Appearance Urine Cloudy (Clear); Bacteria Urine Trace /hpf; Bilirubin Urine Negative (Negative); Blood Urine Negative (Negative); Color Urine Yellow (Yellow); Glucose Urine UA Negative (Negative); Hyaline Casts Urine 15-19 /lpf; Ketones Urine Negative (Negative); Leukocyte Esterase Ur Trace LEU/UL (Negative); Mucus Urine Rare /lpf; Nitrate Urine Negative (Negative); Protein Urine Negative (Negative); RBC Urine 0-2 /hpf (0-2); Specific Grav Ur 1.019 (1.001-1.035); Squamous Epithelial Cell Urine Many /hpf (Few); Urobilinogen Urine Negative mg/dL (<2.0)
[2020-01-04 16:18] LABS: Alanine Aminotransferase 13 U/L (4-35); Albumin Level 4.3 g/dL (3.5-5.1); Alkaline Phosphatase 90 U/L (38-126); Anion Gap 9 mmol/L (8-16); Aspartate Amino Transferase 25 U/L (14-36); Bilirubin,Total 0.8 mg/dL (0.2-1.3); Blood Urea Nitrogen 16 mg/dL (7-17); Calcium 9.3 mg/dL (8.4-10.2); Carbon Dioxide 27 mmol/L (22-30); Chloride 99 mmol/L (98-107); Estimated CRCL calculation 33 ml/min; Estimated Glomerular Filt Rate 53; Glucose 140 mg/dL (65-105); Lipase 25 U/L (23-300); Potassium 3.4 mmol/L (3.4-5.0); Sodium 135 mmol/L (137-145)
--- NOTE | 2020-01-04 16:37 | ED.ABDPAIN ---
HPI - Abdominal Pain General Chief Complaint: Abdominal Pain Stated Complaint: constipation Time Seen by Provider: 01/04/20 16:27 Source: patient Mode of arrival: ambulatory Limitations: no limitations History of Present Illness HPI narrative: 79 years old white female presents with no bowel movement for the last 2 weeks, abdominal pain mainly left side over the last few days, nausea, retching. Patient denies any fever, chills, chest pain or shortness of breath. History of hypertension, hypothyroidism, appendectomy, hysterectomy, twisted colon. Right knee surgery 18 months ago, another surgery on the same knee December 28 got discharged from the hospital few days ago. Patient been on oxycodone since December 28. Related Data Home Medications Medication Instructions Recorded Confirmed quetiapine 25 mg tablet 25 mg PO HS tablet 11/05/19 12/23/19 clonazepam 0.5 mg PO .QHS PRN 12/23/19 12/23/19 Allergies Allergy/AdvReac Type Severity Reaction Status Date / Time celecoxib Allergy Intermediate stomach Verified 01/04/20 15:50 pain Goyavfs-Okg-Eij Reductase Allergy Intermediate myalgia Verified 01/04/20 15:50 Inhibitor sitagliptin Allergy Unknown unknown Verified 01/04/20 15:50 glimepiride AdvReac Intermediate Diarrhea Verified 01/04/20 15:50 meloxicam AdvReac Intermediate diarrhea Verified 01/04/20 15:50 metformin AdvReac Intermediate Diarrhea Verified 01/04/20 15:50 Review of Systems Review of Systems: Narrative: CONSTITUTIONAL: Denies fever, chills, or sweats. EYES: Denies visual changes, redness, or discharge. ENT: Denies rhinorrhea, congestion, sore throat, or otalgia. CARDIOVASCULAR: Denies chest pain, palpitations, or edema. RESPIRATORY: Denies cough or dyspnea. GASTROINTESTINAL: Denies abdominal pain, nausea, vomiting, or diarrhea. GENITOURINARY: Denies dysuria or hematuria. SKIN: Denies rash or itching. MUSCULOSKELETAL: Denies back pain, joint pain, or myalgia. NEUROLOGIC: Denies headache, numbness, or weakness. PSYCHIATRIC: Denies anxiety or depression. [facility] Past Medical History Medical History Cataracts, bilateral Chicken pox Hernia History of pulmonary embolism History of TIA (transient ischemic attack) HTN (hypertension) Hypoglycemia Hypothyroidism Kidney stones (~2015) history of lithotripsy in cysto. Osteopenia Osteoporosis Psychiatric care PTSD (post-traumatic stress disorder) Thyroid disorder Twisting of colon on long axis (~2000) Vitamin D deficiency disease Surgical History Surgical History H/O thyroidectomy (~2008) History of appendectomy (~194) History of hysterectomy (~1970) History of Min fundoplication (~2014) History of removal of both ovaries (~1983) History of tonsillectomy History of total knee arthroplasty January 2018 with resurfacing and poly exchange on 12/29/2019 Hx of colonoscopy with polypectomy Hx of cystoscopy Total knee replacement status Family History Family History Father Acute myocardial infarction Family history of coronary artery disease, Onset Age: 56 Mother Acute myocardial infarction Family history of malignant neoplasm of ovary Other Diabetes mellitus Family history of blood dyscrasia Family history of cardiovascular disease Family history of malignant neoplasm Hypertension Social History Social History Social History: patient uses marijuana every night. She has 3 daughters. She does not have a durable power insole rounder for healthcare but wishes to be a full code. Patient smoked 5 cigarettes a day for 3 years and quit 1969. She is . No alcohol. She was homemaker. Smoking status: Never smoker Alcohol intake: never Substance use: current Other substance usage details: ONE OR TWO HITS EVERY NIGHT TO HELP SLEEP X
[2020-01-04] MEDS: SODIUM CHLORIDE 0.9% IV 1,000 ML 999 ML IV CONT (16:42)
[2020-01-04 17:06] LABS: Lactic Acid Reflex 0.9 mmol/L (0.7-2.1)
--- NOTE | 2020-01-04 17:35 | PC.NURSE ---
pt to ct via stretcher at this time.
[2020-01-04] MEDS: metroNIDAZOLE 500 MG/ISO 100ML 500 MG/100 ML BAG 100 MG IVPB (19:11)
[2020-01-04] MEDS: SODIUM CHLORIDE 0.9% IV 1,000 ML 125 ML IV CONT (19:16)
--- NOTE | 2020-01-04 20:15 | PC.NURSE ---
This patient, Viktoriya Robb, was admitted to 2 Medical Room 250-01. Patient/family oriented to hospital policies and general routines including ID bracelet, bed and alarms, visiting hours, pain management, procedures, bathroom and other care routines, personal items, smoking policy, room service/diet, and visiting hours. Valuables list has been completed. Information on how to activate the Rapid Response Team has been discussed. Patient/Family are encouraged to report perceived risks to care and to ask questions if they do not understand what they are told or what they should do.
--- NOTE | 2020-01-04 22:03 | PM.IMHP ---
H&P: HPI History of Present Illness Date/Time: 01/05/20 00:35 Chief complaint: abdominal pain, constipation Narrative: Viktoriya Robb is a 79 year old female with a past medical history of chronic pain on chronic narcotics, chronic constipation, prior bowel resection and recent patellar resurfacing surgery who presented to the ER with constipation for 17 days. the patient reports that she had not had a bowel movement for approximately 10-12 days before her knee surgery on the . She has subsequently only past 1 hard rabbit like stool with mucus since that time. She reports that she had similar difficulties having a bowel movement after her initial knee replacement in 2018. Prior to for current knee surgery she did try milk of magnesia, Colace, and Linzess as well as laxative tablets had home without relief in her constipation. When she returned home she continued to try Linzess up to twice a day as well as multiple doses of milk of magnesia and Colace. Despite these measures she developed increasing abdominal pain in the left part of her abdomen and up into the epigastric region. She has been having increasing gas and distension. She has also now noticed increased nausea. She reports that she always has nausea associated with bowel movements ever since she had a Min fundoplication 5 years ago. She reports she has to eat very small amounts of food at a time and chew her food well or she will dry heave. She denies any fevers or chills. She has been having normal urine output. She has been trying to minimize how much narcotics she is taking at home. She denies any chest pain or shortness of breath. Review of Systems Review of Systems: Narrative: 12 systems were reviewed with pertinent positives and negatives per HPI. Except as documented in the HPI, all other systems were reviewed and are negative. [facility] Past Medical History Medical History (Updated 01/04/20 @ 22:19 by Crystal Levine DO) Chicken pox Duodenal ulcer Hernia History of pulmonary embolism 2014 following Min fundoplication History of TIA (transient ischemic attack) HTN (hypertension) Hypoglycemia Hypothyroidism Kidney stones (~2015) history of lithotripsy in cysto. Osteopenia Osteoporosis DEXA scan November 2019 Psychiatric care PTSD (post-traumatic stress disorder) Thyroid disorder TIA (transient ischemic attack) Vitamin D deficiency disease Surgical History Surgical History (Updated 01/04/20 @ 22:30 by Crystal Levine DO) H/O thyroidectomy (~2008) partial History of appendectomy (~1949) History of bilateral cataract extraction 2018 History of bowel resection due to twisted bowel 2007 History of hysterectomy (~1970) History of Min fundoplication (~2014) History of removal of both ovaries (~1983) History of tonsillectomy History of total knee arthroplasty January 2018 with resurfacing and poly exchange on 12/29/2019 History of total right knee replacement January 2018 with patellar resurfacing December 29, 2019 Hx of colonoscopy with polypectomy December [address] Barrow Hx of cystoscopy with bilateral ureteral stents April 2015 Family History Family History Father Acute myocardial infarction Mother Acute myocardial infarction Colon cancer Sibling Hypertension Diabetes mellitus Crohn's disease Sibling Hypertension Daughter Hypertension Daughter Hypertension Other Family history of blood dyscrasia Social History Social History (Updated 01/05/20 @ 05:00 by Crystal Levine DO) Social History: She uses marijuana every night. She has 3 daughters , for granddaughter's and 8 great grand children. Patient smoked 5 cigarettes a day for 3 years and quit 1969. She is . No alcohol. Primary care physician: Dr. Jamal Jordan Code status: Full code Durable power of business attorney: None Smoking status: Never smoker Alc
[2020-01-04] MEDS: clonazePAM 0.5 MG TABLET PO (22:59)
[2020-01-04] MEDS: METHYLNALTREXONE 12 MG/0.6 ML VIAL SUB-Q (22:59)
[2020-01-04] MEDS: oxyCODONE/ACETAMINOPHEN 5-325 MG TABLET 1 TABLET PO (22:59)
[2020-01-04] MEDS: QUEtiapine FUMARATE 25 MG TABLET PO (22:59)
[2020-01-04] MEDS: DOCUSATE SODIUM 400 MG/400 ML ENEMA RECTAL (22:59)
[2020-01-05 02:00] VITALS: BP 130/59; PULSE 83; RESP 12; TEMP 36.8; O2SAT 99
[2020-01-05 04:59] LABS: Basophils Absolute Auto 0.1 K/mm3 (0.0-0.1); Basophils Percent Auto 0.8 % (0.2-1.2); Eosinophils Absolute Auto 0.1 K/mm3 (0-0.3); Eosinophils Percent Auto 1.4 % (0-4.4); Hematocrit 24.3 % (37.0-47.0); Immature Granulocyte Absolute 0.02 K/mm3 (0.00-0.031); Immature Granulocyte Percent A 0.3 % (0-0.5); Lymphocytes Absolute Auto 0.83 K/mm3 (0.9-3.2); Lymphocytes Percent Auto 13.3 % (18.3-44.2); Mean Corpuscular HGB Conc 32.9 g/dl (32-36); Mean Corpuscular Hemoglobin 30.1 pg (26-34); Mean Corpuscular Volume 91.4 fl (80-100); Monocytes Absolute Auto 0.7 K/mm3 (0.1-0.6); Neutrophils Absolute Auto 4.6 K/mm3 (1.3-6.7); Neutrophils Percent Auto 73.2 % (45.5-73.1); Platelet Count Result 215 k/mm3 (150-375); Red Blood Count 2.66 M/mm3 (4.2-5.4); Red Cell Distribution Width 11.7 % (11.5-14.5); White Blood Count 6.3 K/mm3 (4.5-10.0)
[2020-01-05] MEDS: SODIUM CHLORIDE 0.9% IV 1,000 ML 125 ML IV CONT (06:11)
[2020-01-05] MEDS: DOCUSATE SODIUM 400 MG/400 ML ENEMA RECTAL (06:11)
[2020-01-05] MEDS: LEVOTHYROXINE SODIUM 100 MCG TABLET PO (06:11)
[2020-01-05] MEDS: oxyCODONE/ACETAMINOPHEN 5-325 MG TABLET 1 TABLET PO (06:14)
[2020-01-05 06:44] VITALS: BP 127/51; PULSE 94; RESP 16; TEMP 36.6; O2SAT 100
[2020-01-05 08:00] VITALS: BP 109/56; PULSE 86; RESP 16; TEMP 36.8; O2SAT 98
[2020-01-05 08:13] LABS: Anion Gap 5 mmol/L (8-16); Blood Urea Nitrogen 9 mg/dL (7-17); Calcium 7.9 mg/dL (8.4-10.2); Carbon Dioxide 24 mmol/L (22-30); Chloride 109 mmol/L (98-107); Estimated CRCL calculation 40 ml/min; Estimated Glomerular Filt Rate > 60; Glucose 97 mg/dL (65-105); Potassium 3.5 mmol/L (3.4-5.0); Sodium 138 mmol/L (137-145)
[2020-01-05] MEDS: MAGNESIUM CITRATE 300 ML BTL PO (08:18)
[2020-01-05] MEDS: DOCUSATE SODIUM 100 MG CAPSULE PO ×2 (08:19→17:03)
[2020-01-05] MEDS: amLODIPine BESYLATE 5 MG TABLET 10 MG PO (08:19)
[2020-01-05] MEDS: lisinopriL 10 MG TABLET PO (08:19)
[2020-01-05] MEDS: polyethylene glycoL 3350 17 GM POWD.PACK PO (08:20)
--- NOTE | 2020-01-05 11:10 | PM.IMPN ---
Progress Note: A&P Assessment and Plan (1) Constipation: Qualifiers: Constipation type: unspecified constipation type Qualified Code(s): K59.00 - Constipation, unspecified Code(s): K59.00 - Constipation, unspecified Status: Acute Assessment and Plan: Patient describes no BM in over 2 weeks until last night. Small BM last night and another this morning. So far, she has been treated with relistor, mag citrate, colace enema, miralax. She is not tolerating the miralax well due to nausea nor the enemas due to pain. She has nausea and dry heaving commonly following her jeet fundoplication. She is willing to try oral lactulose today which can be followed by dulcolax suppository as needed. Suspect the patient's constipation is in part due to chronic narcotic use. Home pain regimen with Percocet was decreased. (2) Colitis: Code(s): K52.9 - Noninfective gastroenteritis and colitis, unspecified Status: Acute Assessment and Plan: Suspected stercoral colitis as a result of significant constipation. Infectious colitis is much less likely given the patient's clinical presentation, thus antibiotics have been discontinued at this time. If the patient develops fever or worsening leukocytosis this will be re-evaluated. (3) S/P right knee surgery: Code(s): Z98.890 - Other specified postprocedural states Status: Acute Assessment and Plan: Patient with history of right total knee replacement 2018 went in for right patella resurfacing surgery by Dr Vaca 12/29/19. Continue pain regimen. Her mepilex dressing is clean/dry/intact but was due to be changed today by home health RN. Subjective Date/time seen: 01/05/20 1050 Interval history: Ms. Robb is a 79yo F admitted for significant constipation that has seemed to cause a colitis. She is uncomfortable this morning with intermittent left-sided abdominal cramping which she rates 6/10 intensity. She describes having a small bowel movement last night and another small loose BM this morning. She was nauseous with dry heaves this morning which is now improved. She denies chest pain, shortness of breath, or calf tenderness. Review of Systems Review of Systems: Narrative: Twelve systems were reviewed with pertinent positives and negatives as per HPI. Exam Narrative: Exam Narrative: General: Female resting supine in bed, noticeably uncomfortable with abdominal cramping, tearful. HEENT: Normocephalic, EOMI, oral mucosa moist. Cardiovascular: Rate and rhythm are regular. Respiratory: Lungs clear to auscultation all knowles. Non-labored breathing. Tolerating room air. Abdomen: Soft, mildly distended, left-sided abdominal pain to palpation with voluntary guarding. Extremities: Peripheral pulses intact. No edema. Neuro: No focal neurological deficits. Speech is clear. Objective Data Vital Signs Vital Signs: Last Vital Signs Temp 98.3 F 01/05/20 08:00 Pulse 86 01/05/20 08:00 Resp 16 01/05/20 08:00 BP 109/56 L 01/05/20 08:00 Pulse Ox 98 01/05/20 08:00 Intake/Output Intake/Output: Intake & Output 01/02/20 01/03/20 01/04/20 01/05/20 23:59 23:59 23:59 23:59 Intake Total 1350 1370 Output Total 600 Balance 1350 770 Meds/Results Medications: Active Medications Generic Name Dose Route Start Last Admin Trade Name Freq PRN Reason Stop Dose Admin Acetaminophen 650 mg 01/04/20 22:37 Tylenol Tablet PO Q4H PRN Mild Pain (1-3) or Fever Amlodipine Besylate 10 mg 01/05/20 09:00 01/05/20 08:19 Norvasc PO 10 mg DAILY MANISH Administration Aspirin 650 mg 01/05/20 09:00 Aspirin Ec PO DAILY MANISH Clonazepam 0.5 mg 01/04/20 22:18 01/04/20 22:59 Klonopin Tablet PO 0.5 mg HS PRN Administration insomnia Docusate Sodium 100 mg 01/04
[2020-01-05] MEDS: ASPIRIN 325 MG ENTERIC TABLET 650 MG PO (11:49)
[2020-01-05 12:00] VITALS: BP 119/60; PULSE 86; RESP 18; TEMP 35.8; O2SAT 97
[2020-01-05] MEDS: LACTULOSE 20 GM/30 ML UDC PO (12:38)
[2020-01-05 14:39] VITALS: BMI 23.6
[2020-01-05] MEDS: ONDANSETRON INJ 4 MG/2 ML VIAL IV PUSH ×2 (14:55→20:43)
[2020-01-05] MEDS: SODIUM CHLORIDE 0.9% IV 1,000 ML 100 ML IV CONT (15:44)
[2020-01-05 16:00] VITALS: BP 111/55; PULSE 89; RESP 16; TEMP 36.2; O2SAT 98
[2020-01-05 20:00] VITALS: BP 140/65; PULSE 95; RESP 20; TEMP 36.9; O2SAT 99
[2020-01-05] MEDS: clonazePAM 0.5 MG TABLET PO (20:44)
[2020-01-05] MEDS: QUEtiapine FUMARATE 25 MG TABLET PO (20:44)
[2020-01-06] VITALS: BP 125/59; PULSE 62; RESP 26; TEMP 37.2; O2SAT 92
[2020-01-06] MEDS: SODIUM CHLORIDE 0.9% IV 1,000 ML 100 ML IV CONT (02:53)
[2020-01-06 04:00] VITALS: BP 113/58; PULSE 87; RESP 18; TEMP 36.2; O2SAT 96
[2020-01-06 05:28] LABS: Basophils Percent Auto 0.7 % (0.2-1.2); Eosinophils Absolute Auto 0.1 K/mm3 (0-0.3); Eosinophils Percent Auto 1.3 % (0-4.4); Hemoglobin 8.2 g/dL (12.0-15.0); Immature Granulocyte Absolute 0.04 K/mm3 (0.00-0.031); Immature Granulocyte Percent A 0.7 % (0-0.5); Lymphocytes Absolute Auto 0.59 K/mm3 (0.9-3.2); Lymphocytes Percent Auto 9.9 % (18.3-44.2); Mean Corpuscular HGB Conc 32.8 g/dl (32-36); Mean Corpuscular Hemoglobin 30.3 pg (26-34); Mean Corpuscular Volume 92.3 fl (80-100); Mean Platelet Volume 11.5 fl (7.4-10.4); Monocytes Absolute Auto 0.6 K/mm3 (0.1-0.6); Monocytes Percent Auto 9.8 % (2.6-8.5); Neutrophils Absolute Auto 4.6 K/mm3 (1.3-6.7); Neutrophils Percent Auto 77.6 % (45.5-73.1); Platelet Count Result 252 k/mm3 (150-375); Red Blood Count 2.71 M/mm3 (4.2-5.4); Red Cell Distribution Width 11.9 % (11.5-14.5); White Blood Count 5.9 K/mm3 (4.5-10.0)
[2020-01-06 05:38] LABS: Anion Gap 5 mmol/L (8-16); Blood Urea Nitrogen 5 mg/dL (7-17); Carbon Dioxide 26 mmol/L (22-30); Chloride 107 mmol/L (98-107); Estimated CRCL calculation 40 ml/min; Estimated Glomerular Filt Rate > 60; Glucose 110 mg/dL (65-105); Magnesium 2.4 mg/dL (1.6-2.3); Potassium 3.3 mmol/L (3.4-5.0); Sodium 138 mmol/L (137-145)
[2020-01-06] MEDS: LEVOTHYROXINE SODIUM 100 MCG TABLET PO (06:31)
[2020-01-06 08:00] VITALS: BP 121/64; PULSE 85; RESP 20; TEMP 36.8; O2SAT 100
[2020-01-06] MEDS: DOCUSATE SODIUM 100 MG CAPSULE PO (09:16)
[2020-01-06] MEDS: amLODIPine BESYLATE 5 MG TABLET 10 MG PO (09:16)
[2020-01-06] MEDS: ASPIRIN 325 MG ENTERIC TABLET 650 MG PO (09:16)
[2020-01-06] MEDS: lisinopriL 10 MG TABLET PO (09:16)
[2020-01-06] MEDS: POTASSIUM CHLORIDE 20 MEQ TABLET 40 MEQ PO (09:16)
[2020-01-06 12:00] VITALS: BP 119/53; PULSE 86; RESP 20; TEMP 36.4; O2SAT 100
--- NOTE | 2020-01-06 15:09 | PM.DS ---
DS: Admitting Diagnosis Admitting Diagnosis Admitting Diagnosis: abdominal pain, constipation DS: Discharge Diagnosis Discharge Diagnosis (1) Constipation: Qualifiers: Constipation type: unspecified constipation type Qualified Code(s): K59.00 - Constipation, unspecified Code(s): K59.00 - Constipation, unspecified Status: Acute Assessment and Plan: Date of Admission 01/04/20 Date of Discharge/DOS: 01/06/20 Ms. Robb is a 79yo F with history of hypertension, hypothyroidism, and anxiety who presented to the ED for evaluation of constipation. She described that she had not had a bowel movement in 17 days. She recently had a right patellar resurfacing surgery by Dr Vaca here 12/29/19 and had not had a BM for about 1 week prior to the procedure. She is known to take narcotic pain medications which is likely contributing to her constipation. She had tried multiple remedies at home including laxatives and suppositories with no relief and presented to the ED. Imaging with CT abdomen/pelvis showed prominent sigmoid colon distension with stool with wall thickening suggesting stercoral colitis. She was treated here with miralax, enemas, suppositories, then oral lactulose after which she finally had 4 large bowel movements. She was feeling improved the following day, KUB showed no evidence of obstruction on day of discharge. She was hemodynamically stable for discharge 01/06/20 with instructions to limit or stop narcotic pain medications and to continue a regular bowel regimen to avoid constipation. She describes having a Min fundoplication 5 years ago and has had chronic nausea and dry heaving since. She wishes to follow up with Dr Du at some point to discuss this. (2) Colitis: Code(s): K52.9 - Noninfective gastroenteritis and colitis, unspecified Status: Acute Assessment and Plan: Suspected stercoral colitis as a result of significant constipation. Infectious colitis is much less likely given the patient's clinical presentation, thus antibiotics have been discontinued at this time. (3) S/P right knee surgery: Code(s): Z98.890 - Other specified postprocedural states Status: Acute Assessment and Plan: Patient with history of right total knee replacement 2018 went in for right patella resurfacing surgery by Dr Vaca 12/29/19. Her mepilex dressing is clean/dry/intact but changed per the discharge instructions from previous admission. She has a follow up appointment with Dr Vaca's office 01/13/20. (4) Hypothyroidism: Code(s): E03.9 - Hypothyroidism, unspecified Status: Chronic Assessment and Plan: Maintained on her home levothyroxine. (5) HTN (hypertension): Qualifiers: Hypertension type: essential hypertension Qualified Code(s): I10 - Essential (primary) hypertension Code(s): I10 - Essential (primary) hypertension Status: Chronic Assessment and Plan: Stable maintained on her home Norvasc and lisinopril. DS: Summary Time Spent with Patient Time attestation: Total time spent providing and/or coordinating discharge services: 35 minutes Exam Narrative: Exam Narrative: General: Female resting comfortably in bed in no acute distress. HEENT: Normocephalic, EOMI, oral mucosa moist. Cardiovascular: Rate and rhythm are regular. Respiratory: Lungs clear to auscultation all knowles. Non-labored breathing. Tolerating room air. Abdomen: Soft, non-tender, nondistended, bowel sounds present. Extremities: Peripheral pulses intact. No edema. Neuro: No focal neurological deficits. Speech is clear. DS: Data Data Completed and Pending Labs on day of discharge: Last Vital Signs Temp 97.5 F L 01/06/20 12:00
== END 2020-01-06 15:25 | disposition home health service (06) ==
LOC: ANHED 19:10 → ANH2MED 19:48
PROVIDERS: Physician Assistant; Admitting Provider Family Medicine; Emergency Provider Emergency Medicine; PCP Emergency Medicine; Visit Provider Internal Medicine
DX: K59.09 Other constipation (principal); I10 Essential (primary) hypertension; E03.9 Hypothyroidism, unspecified; Z86.73 Personal history of transient ischemic attack (TIA), and cerebral infarction without residual deficits; Z23 Encounter for immunization; K52.9 Noninfective gastroenteritis and colitis, unspecified; Z96.651 Presence of right artificial knee joint; Z79.899 Other long term (current) drug therapy
CPT/HCPCS: 36415; 74018; 74177; 80048; 80053; 81001; 83605; 83690; 83735; 85025; 90471; 90686; 96361; 96365; 96367; 96372; 96375; 96376; 99285; A9270; G0008; G0378; J0131; J1956; J2212; J2405; J7030; Q9967

== ENCOUNTER 2020-02-18 03:38 | Outpatient (CLI) | payer OTHER, SELFPAY ==
[2020-02-18 17:45] LABS: SARS-CoV-2 RNA PCR Negative
== END 2020-02-18 03:39 | disposition home or self-care (01) ==
LOC: ANHCOVIDDT 03:38
PROVIDERS: Visit Provider Internal Medicine Gastroenterology
DX: Z01.812 Encounter for preprocedural laboratory examination (principal); Z20.828 Contact with and (suspected) exposure to other viral communicable diseases
CPT/HCPCS: 87635; C9803; U0003

== ENCOUNTER 2020-02-21 01:24 | Day surgery (SDC) | payer OTHER, SELFPAY ==
[2020-02-15 14:07] VITALS: BMI 23.2
[2020-02-21] MEDS: LACTATED RINGERS 1,000 ML 150 ML IV CONT (07:03)
[2020-02-21] MEDS: AMPICILLIN 2 GM/NS 100 ML 2 GM/100 ML BAG IVPB (07:04)
[2020-02-21 07:08] VITALS: BP 105/88; PULSE 83; RESP 16; TEMP 36.6; O2SAT 100; BMI 23.5
--- NOTE | 2020-02-21 07:21 | WPDANESEPPF ---
Anes - Initial Pre Proc Eval Procedure: Operation Date: 02/21/20 08:00 Proposed Procedures p Esophagogastroduodenoscopy - Giovany Calvillo MD Date/Time: 02/21/20 07:21 Surgeon: Giovany Calvillo MD Pre Op Diagnosis: Dysphagia Patient Data Age: 79 Gender: F Height: 5 ft Weight: 54.7 kg Last Vital Signs Temp 97.9 F 02/21/20 07:08 Pulse 83 02/21/20 07:08 Resp 16 02/21/20 07:08 BP 105/88 02/21/20 07:08 Pulse Ox 100 02/21/20 07:08 Allergies Allergy/AdvReac Type Severity Reaction Status Date / Time Rcpimxm-Ual-Bfe Reductase Allergy Intermediate myalgia Verified 02/15/20 14:02 Inhibitor sitagliptin Allergy Unknown unknown Verified 02/15/20 14:02 glimepiride AdvReac Intermediate Diarrhea Verified 02/15/20 14:02 meloxicam AdvReac Intermediate diarrhea Verified 02/15/20 14:02 metformin AdvReac Intermediate Diarrhea Verified 02/15/20 14:02 Home Medications Medication Instructions Recorded Confirmed Type quetiapine 25 mg tablet 25 mg PO HS tablet 11/05/19 02/21/20 History lisinopril 10 mg tablet 10 mg PO DAILY #90 tablet 12/15/19 02/21/20 Rx levothyroxine 100 mcg capsule 100 mcg PO DAILY #90 cap 12/17/19 02/21/20 Rx clonazepam 0.5 mg PO .QHS PRN 12/23/19 02/21/20 History oxycodone-acetaminophen 1 tablet PO Q4H PRN #56 tablet 12/31/19 02/21/20 Rx lactulose 10 gm PO DAILY PRN #473 ml 01/06/20 02/21/20 Rx promethazine 25 mg tablet See Rx Instructions .ROUTE 01/31/20 02/21/20 Rx .COMPLEX #30 tablet amlodipine [Norvasc] 10 mg PO DAILY 02/15/20 02/21/20 History Patient hx anesthesia problems: none Family hx anesthesia problems: none PMFSH Past Medical History Medical History Chicken pox Duodenal ulcer Hernia History of pulmonary embolism 2014 following Min fundoplication History of TIA (transient ischemic attack) HTN (hypertension) Hypoglycemia Hypothyroidism Kidney stones (~2015) history of lithotripsy in cysto. Osteopenia Osteoporosis DEXA scan November 2019 Psychiatric care PTSD (post-traumatic stress disorder) Thyroid disorder TIA (transient ischemic attack) Vitamin D deficiency disease Surgical History Surgical History H/O thyroidectomy (~2008) partial History of appendectomy (~1949) History of bilateral cataract extraction 2017 History of bowel resection due to twisted bowel 2007 History of hysterectomy (~1970) History of Min fundoplication (~2014) History of removal of both ovaries (~1983) History of tonsillectomy History of total knee arthroplasty January 2018 with resurfacing and poly exchange on 12/29/2019 History of total right knee replacement January 2018 with patellar resurfacing December 29, 2019 Hx of colonoscopy with polypectomy December [address] Barrow Hx of cystoscopy with bilateral ureteral stents April 2015 Family History Family History Father Acute myocardial infarction Mother Acute myocardial infarction Colon cancer Sibling Hypertension Diabetes mellitus Crohn's disease Sibling Hypertension Daughter Hypertension Daughter Hypertension Other Family history of blood dyscrasia Social History Social History Social History: She uses marijuana every night. She has 3 daughters , for granddaughter's and 8 great grand children. Patient smoked 5 cigarettes a day for 3 years and quit 1969. She is . No alcohol. Primary care physician: Dr. Jamal Jordan Code status: Full code Durable power of trademark attorney: None Smoking status: Never smoker Alcohol intake: never Substance use: never Substance use type: does not use Other substance usage details: ONE OR TWO HITS EVERY NIGHT TO HELP SLEEP X 40 YRS Living arrangements: alone Additional living arrangements c
--- NOTE | 2020-02-21 07:56 | WPDGICN ---
Assessment and Plan Assessment and plan (1) Constipation: Qualifiers: Constipation type: unspecified constipation type Qualified Code(s): K59.00 - Constipation, unspecified Code(s): K59.00 - Constipation, unspecified Status: Acute Assessment and Plan: Patient has alternating diarrhea constipation. Constipation primarily appears related to narcotic use. Would recommend limiting narcotics as much as feasible. Id MiraLax is suggested in the antrum. Patient is on lactulose which should be taken as needed as well. Colace on a daily basis may be of additional benefit. Patient had a colonoscopy [address] López sent which time polyps were identified follow-up colonoscopy in 4 years is advised. (2) Dysphagia: Code(s): R13.10 - Dysphagia, unspecified Status: Acute Assessment and Plan: Patient has dysphagia. With her history of acid reflux plan is for EGD to exclude stricture ring. Additionally dysphagia may be related to a tight fundoplication. Soft diet is advised. Further recommendations will be given after endoscopy. (3) Status post laparoscopic Min fundoplication: Code(s): Z98.890 - Other specified postprocedural states Status: Acute (4) Anxiety: Code(s): F41.9 - Anxiety disorder, unspecified Status: Chronic (5) Painful total knee replacement: Qualifiers: Encounter type: subsequent encounter Laterality: right Qualified Code(s): T84.84XD - Pain due to internal orthopedic prosthetic devices, implants and grafts, subsequent encounter; Z96.651 - Presence of right artificial knee joint Code(s): T84.84XA - Pain due to internal orthopedic prosthetic devices, implants and grafts, initial encounter; Z96.659 - Presence of unspecified artificial knee joint Status: Acute GI Consult Note Consult date/time: 02/21/20 07:56 HPI: Viktoriya Robb is a 79 year old female Seen in evaluation at the request of Dr. Jordan. Patient has multiple complaints. Currently complains of difficulty swallowing. She has a history of a Min fundoplication 5 years ago. She previously was treated for GE reflux disease and regurgitate cage perales. Apparently this was complicated by bleeding. She complains of retching. Nausea. Alternating diarrhea and constipation this all seems to improve after a bowel movement. She recently has had increasing difficulty swallowing. Food will hang up in the mid substernal portion of the chest. Patient does take narcotics for pain relief and this appears to constipate her. She has taken no specific medications for control of her bowel habits. [facility] Past Medical History Medical History (Updated 02/21/20 @ 07:59 by Giovany Calvillo MD) Chicken pox Duodenal ulcer Hernia History of pulmonary embolism 2014 following Min fundoplication History of TIA (transient ischemic attack) HTN (hypertension) Hypoglycemia Hypothyroidism Kidney stones (~2015) history of lithotripsy in cysto. Osteopenia Osteoporosis DEXA scan November 2019 Psychiatric care PTSD (post-traumatic stress disorder) Thyroid disorder TIA (transient ischemic attack) Vitamin D deficiency disease Surgical History Surgical History H/O thyroidectomy (~2008) partial History of appendectomy (~194) History of bilateral cataract extraction 2017 History of bowel resection due to twisted bowel 2007 History of hysterectomy (~1970) History of Min fundoplication (~2014) History of removal of both ovaries (~1983) History of tonsillectomy History of total knee arthroplasty January 2018 with resurfacing and poly exchange on 12/29/2019 History of total right knee replacement January 2018 with patellar resurfacing December 29, 2019 Hx of colonoscopy with polypectomy December [address] Barrow Hx of cystoscopy with bilateral ureteral stents April 2015 Family Histor
[2020-02-21] MEDS: BENZOCAINE (*SP) 60 ML SPRAY CAN (HURRICAINE) 1 SPRAY MUCOUS MEM (08:08)
[2020-02-21 08:17] VITALS: BP 120/59; PULSE 82; RESP 17; O2SAT 99
[2020-02-21 08:27] VITALS: BP 126/61; PULSE 84; RESP 17; O2SAT 100
[2020-02-21 08:37] VITALS: BP 119/67; PULSE 82; RESP 17; O2SAT 100
== END 2020-02-21 08:59 | disposition home or self-care (01) ==
PROVIDERS: Visit Provider Internal Medicine Gastroenterology
PROC: 0DJ08ZZ Inspection of Upper Intestinal Tract, Via Natural or Artificial Opening Endoscopic (ICD-10-PCS; CPT 43235; principal; 2020-02-21 08:00)
DX: R13.10 Dysphagia, unspecified (principal); K22.2 Esophageal obstruction; K59.00 Constipation, unspecified; I10 Essential (primary) hypertension; E03.9 Hypothyroidism, unspecified; E55.9 Vitamin D deficiency, unspecified; M81.0 Age-related osteoporosis without current pathological fracture; F12.90 Cannabis use, unspecified, uncomplicated; T84.84XD Pain due to internal orthopedic prosthetic devices, implants and grafts, subsequent encounter; F43.10 Post-traumatic stress disorder, unspecified; F41.9 Anxiety disorder, unspecified; Z80.0 Family history of malignant neoplasm of digestive organs; Z86.73 Personal history of transient ischemic attack (TIA), and cerebral infarction without residual deficits; Z86.711 Personal history of pulmonary embolism; Z96.651 Presence of right artificial knee joint
CPT/HCPCS: 43235; 43450; J0290; J2704; J7120

== ENCOUNTER 2020-04-28 06:31 | Outpatient (NON) | payer OTHER, SELFPAY ==
[2020-04-28 18:38] LABS: SARS-CoV-2 RNA PCR Positive
== END 2020-04-28 06:32 ==
LOC: ANHCOVIDDT 06:33
PROVIDERS: Visit Provider Emergency Medicine
DX: U07.1 COVID-19 (principal)
CPT/HCPCS: C9803; U0003

== ENCOUNTER 2020-05-03 13:30 | Outpatient (RCR) | payer MEDICARE, SELFPAY ==
[2020-05-03] MEDS: FAMOTIDINE 20 MG TABLET PO (13:45)
[2020-05-03] MEDS: diphenhydrAMINE HCl CAP 25 MG CAPSULE PO (13:45)
[2020-05-03] MEDS: ACETAMINOPHEN 325 MG TABLET 650 MG PO (13:45)
[2020-05-03 13:55] VITALS: BP 108/66; PULSE 102; RESP 18; TEMP 36.1; O2SAT 98
--- NOTE | 2020-05-03 14:13 | PC.NURSE ---
Patient given written instruction on Covid 19 antibody treatment and fact sheet on Bamlanivimab.
[2020-05-03 15:14] VITALS: BP 114/61; PULSE 83; RESP 16; O2SAT 100
[2020-05-03 15:51] VITALS: BP 115/74
--- NOTE | 2020-05-04 11:12 | PC.NURSE ---
Spoke to patient and she stated that her temperature was elevated through the night and she had vomiting but feels better today.
== END 2020-05-03 16:04 | disposition home or self-care (01) ==
LOC: AMCINF 13:30
PROVIDERS: PCP Emergency Medicine; Visit Provider Internal Medicine Hematology & Oncology
DX: Z23 Encounter for immunization (principal); U07.1 COVID-19; I10 Essential (primary) hypertension; E11.9 Type 2 diabetes mellitus without complications
CPT/HCPCS: A9270; J7050; M0239; Q0239

== ENCOUNTER 2020-05-20 14:39 | Emergency (ER) | payer OTHER, SELFPAY ==
--- NOTE | ~2020-05-20 | CT_ITS ---
EXAMINATION: CT brain wo con EXAM DATE: 05/20/2020 15:48 INDICATION: Dizziness. TECHNIQUE: Spiral CT of the head was performed without contrast. Axial, coronal and sagittal images were reviewed. The dose-length product (DLP) for this examination was 605.33 mGy-cm. The exposure w as tailored according to patient size, and iterative reconstruction (ASIR) was used as additional dos e reduction technique. Correlation made to prior MRI from 2016. FINDINGS: There is a dural-based 5 mm hyperdense mass along the inferior side of the left tentorium, most likely a meningioma, unchanged compared to 2016. There was a left posterior falx meningioma cesar ntified on that examination which is not well-visualized on this noncontrast head CT. There is no acute intraparenchymal hemorrhage. No evidence of intraparenchymal brain mass lesion. N o evidence of acute infarction. Please note that initial head CT has limited sensitivity for small o r acute infarctions. There is mild periventricular and subcortical hypodensity, nonspecific but prob ably related to small vessel ischemic disease. There is mild prominence of the sulci and ventricles related to cerebral atrophy. There is intracranial carotid arteriosclerosis. There are no extra-a xial collections. There is no mass effect or midline shift. Patient has had bilateral ocular lens s urgery. Soft tissue is unremarkable. The visualized sinuses and mastoid air cells are well aerated. IMPRESSION: 1. No acute intracranial findings. 2. Chronic age related findings. 3. Small meningiomas. Reviewed, dictated and finalized at location [facility]. DRY SORTER
[2020-05-20 14:43] VITALS: BP 144/85; PULSE 97; RESP 19; TEMP 36.2; O2SAT 98
--- NOTE | 2020-05-20 14:55 | ECG_ITS ---
Measurements Intervals [place] Rate: 96 P: 29 WI: 142 QRS: -37 QRSD: 93 T: 18 QT: 345 QTc: 436 Interpretive Statements SINUS RHYTHM LEFT AXIS DEVIATION POOR R WAVE PROGRESSION, ANTERIOR LEADS BORDERLINE T WAVE ABNORMALITY- INFERIOR LEADS BASELINE ARTIFACT- I, II, III ,AVR, AVL BORDERLINE ECG Electronically Signed On 05-20-2020 15:57:03 SUPERVISOR TELEPHONE INFORMATION by Anshul Mercado D.O.
[2020-05-20 15:05] LABS: Basophils Absolute Auto 0.1 K/mm3 (0.0-0.1); Basophils Percent Auto 1.6 % (0.2-1.2); Eosinophils Percent Auto 0.7 % (0-4.4); Hematocrit 34.7 % (37.0-47.0); Hemoglobin 11.3 g/dL (12.0-15.0); Immature Granulocyte Absolute 0.03 K/mm3 (0.00-0.031); Immature Granulocyte Percent A 0.5 % (0-0.5); Lymphocytes Absolute Auto 1.48 K/mm3 (0.9-3.2); Lymphocytes Percent Auto 24.1 % (18.3-44.2); Mean Corpuscular HGB Conc 32.6 g/dl (32-36); Mean Corpuscular Hemoglobin 29.7 pg (26-34); Mean Corpuscular Volume 91.3 fl (80-100); Mean Platelet Volume 10.9 fl (7.4-10.4); Monocytes Absolute Auto 0.6 K/mm3 (0.1-0.6); Monocytes Percent Auto 9.4 % (2.6-8.5); Neutrophils Absolute Auto 3.9 K/mm3 (1.3-6.7); Neutrophils Percent Auto 63.7 % (45.5-73.1); Platelet Count Result 376 k/mm3 (150-375); Red Cell Distribution Width 12.8 % (11.5-14.5); White Blood Count 6.2 K/mm3 (4.5-10.0)
[2020-05-20 15:17] LABS: Alanine Aminotransferase 14 U/L (4-35); Alkaline Phosphatase 82 U/L (38-126); Anion Gap 9 mmol/L (8-16); Aspartate Amino Transferase 23 U/L (14-36); Bilirubin,Total 0.6 mg/dL (0.2-1.3); Blood Urea Nitrogen 18 mg/dL (7-17); Calcium 9.3 mg/dL (8.4-10.2); Carbon Dioxide 25 mmol/L (22-30); Chloride 107 mmol/L (98-107); Estimated CRCL calculation 36 ml/min; Estimated Glomerular Filt Rate > 60; Glucose 176 mg/dL (65-105); Potassium 3.9 mmol/L (3.4-5.0); Sodium 141 mmol/L (137-145)
[2020-05-20] MEDS: METOCLOPRAMIDE HCL INJ 10 MG/2 ML VIAL 5 MG IV PUSH (15:33)
[2020-05-20] MEDS: SODIUM CHLORIDE 0.9% IV 1,000 ML 150 ML IV CONT (15:33)
[2020-05-20] MEDS: MECLIZINE HCL 25 MG TABLET PO (15:34)
[2020-05-20 15:36] VITALS: BP 116/73; PULSE 85; RESP 19; TEMP 36.4; O2SAT 98
--- NOTE | 2020-05-20 15:42 | PC.NURSE ---
Patient to CT at this time.
[2020-05-20 18:29] VITALS: BP 109/52; PULSE 87; RESP 16; O2SAT 97
--- NOTE | 2020-05-20 18:36 | ED.DIZZY ---
HPI - Dizziness General Chief Complaint: Dizziness Stated Complaint: DIZZY Time Seen by Provider: 05/20/20 14:57 Source: patient Mode of arrival: ambulatory Limitations: no limitations History of Present Illness HPI Narrative: 79-year-old with a history of hypertension diabetes, meningioma here with complaints of dizziness since this morning. Patient patient states she is off balance also complains of nausea but no significant vomiting. Denies any chest pain or weakness MD elicited complaint: dizziness Timing: sudden onset Severity: moderate Description: sense of movement, room spinning and off-balance Exacerbating factors: movement/ambulation and position/lying down Associated symptoms: nausea Related Data Home Medications Medication Instructions Recorded Confirmed quetiapine 25 mg tablet 25 mg PO HS tablet 11/05/19 05/03/20 amlodipine [Norvasc] 10 mg PO DAILY 02/15/20 05/03/20 Allergies Allergy/AdvReac Type Severity Reaction Status Date / Time [id number] Reductase Allergy Intermediate myalgia Verified 05/20/20 15:23 Inhibitor sitagliptin Allergy Unknown unknown Verified 05/20/20 15:23 glimepiride AdvReac Intermediate Diarrhea Verified 05/20/20 15:23 meloxicam AdvReac Intermediate diarrhea Verified 05/20/20 15:23 metformin AdvReac Intermediate Diarrhea Verified 05/20/20 15:23 Review of Systems Review of Systems: All systems reviewed & are unremarkable except as noted in HPI and below Constitutional: Constitutional: Reports no additional constitutional complaints Eyes: Eyes: Reports no additional eye complaints ENT: Reports system reviewed and no additional complaints, except as documented Cardiovascular: Cardiovascular: Reports no additional cardiovascular complaints Respiratory: Respiratory: Reports no additional respiratory complaints Gastrointestinal: Gastrointestinal: Reports as per HPI Musculoskeletal: Musculoskeletal: Reports no additional musculoskeletal complaints Neurologic: Reports system reviewed and no additional complaints, except as documented PMF Past Medical History Medical History Chicken pox Duodenal ulcer Hernia History of pulmonary embolism 2014 following Min fundoplication History of TIA (transient ischemic attack) HTN (hypertension) Hypoglycemia Hypothyroidism Kidney stones (~2015) history of lithotripsy in cysto. Osteopenia Osteoporosis DEXA scan November 2019 Psychiatric care PTSD (post-traumatic stress disorder) Right knee pain Thyroid disorder TIA (transient ischemic attack) Vitamin D deficiency disease Surgical History Surgical History H/O thyroidectomy (~2009) partial History of appendectomy (~1949) History of bilateral cataract extraction 2017 History of bowel resection due to twisted bowel 2007 History of hysterectomy (~1970) History of Min fundoplication (~2014) History of removal of both ovaries (~1983) History of tonsillectomy History of total knee arthroplasty January 2018 with resurfacing and poly exchange on 12/29/2019 History of total right knee replacement January 2018 with patellar resurfacing December 29, 2019 Hx of colonoscopy with polypectomy December [address] Barrow Hx of cystoscopy with bilateral ureteral stents April 2015 Family History Family History Father Acute myocardial infarction Mother Acute myocardial infarction Colon cancer Sibling Hypertension Diabetes mellitus Crohn's disease Sibling Hypertension Daughter Hypertension Daughter Hypertension Other Family history of blood dyscrasia Social History Social History Social History: She uses marijuana every night. She has 3 daughters , for granddaughter's and 8 great grand children. Patient smoked 5 cigaret
[2020-05-20 19:09] VITALS: BP 109/52; PULSE 78; RESP 14; O2SAT 98
--- NOTE | 2020-05-26 14:23 | PC.NURSE ---
LATE ENTRY This note is being entered to document information to the patient's record. The following information was omitted on 05/20/2020. IV fluids of normal saline were discontinued at 1900 with 500 ml infused. Patient tolerated well.
== END 2020-05-20 19:10 | disposition home or self-care (01) ==
PROVIDERS: Emergency Medicine; Emergency Provider Family Medicine; Family Provider Internal Medicine; PCP Emergency Medicine
DX: H81.10 Benign paroxysmal vertigo, unspecified ear (principal); I10 Essential (primary) hypertension; E11.9 Type 2 diabetes mellitus without complications; Z86.711 Personal history of pulmonary embolism; Z86.73 Personal history of transient ischemic attack (TIA), and cerebral infarction without residual deficits; Z87.442 Personal history of urinary calculi; M85.80 Other specified disorders of bone density and structure, unspecified site; M81.0 Age-related osteoporosis without current pathological fracture; E07.9 Disorder of thyroid, unspecified; E55.9 Vitamin D deficiency, unspecified; E89.0 Postprocedural hypothyroidism; Z98.42 Cataract extraction status, left eye; Z98.41 Cataract extraction status, right eye; Z96.651 Presence of right artificial knee joint; Z87.891 Personal history of nicotine dependence
CPT/HCPCS: 36415; 70450; 80053; 85025; 93005; 96361; 96374; 99284; A9270; J2765; J7030

== ENCOUNTER 2020-06-19 07:54 | Outpatient (CLI) | payer OTHER, SELFPAY ==
--- NOTE | ~2020-06-19 | MR_ITS ---
EXAMINATION: MR brain IAC wo/w con EXAM DATE: 06/19/2020 09:45 INDICATION: Vertigo, right eustachian tube dysfunction. Hearing loss. TECHNIQUE: Multi-sequential, multiplanar MR images of the brain, brainstem, internal auditory canals were obtained without contrast. Whole brain sagittal T1, axial diffusion, gradient echo (T2*), T1, T 2, FLAIR sequences obtained. High resolution coronal 3-D FIESTA, coronal T1 FSE, axial T1 FSPGR of t he internal auditory canals. Patient was then injected with 10 cc Multihance contrast intravenously. Postcontrast axial and coronal T1 weighted whole brain, axial and coronal high resolution T1 IAC seq uences obtained. Comparison is made to prior examination from 03/15/2016. FINDINGS: No evidence of mastoid or middle ear opacification. The 7th/8th cranial nerve complexes a re symmetric, normal in course and caliber. No cerebellopontine angle masses. Posterior fossa unrem arkable. Trace right mastoid effusion. There is small extra-axial homogeneously enhancing mass lesion along the left side of the falx banking services clerk iorly measuring 1.2 cm in diameter by 7 mm in thickness, consistent with a small meningioma. There is a 2nd lesion with similar appearance along the undersurface of the right tentorium measuring 6 mm. There is mild microangiopathy. Bilateral cataract surgery. There are no areas of restricted diffusion to suggest acute infarction. There is no acute hemorrhage seen on the T2*, a hemosiderin sensitive sequence. No intraparenchymal brain mass. The ventricles are normal in size. There are no extra-axi al collections. Flow voids are seen in the cerebral arteries on the T2-weighted sequences consistent with their expected patency. Soft tissue is unremarkable. IMPRESSION: 1. Trace right mastoid effusion. 2. Two small dural based masses most likely meningiomas. Reviewed, dictated and finalized at location B. ZER ASSISTANT
[2020-06-19 08:53] LABS: Estimated Glomerular Filt Rate > 60
== END 2020-06-19 07:55 | disposition home or self-care (01) ==
LOC: ANHIMG 07:57
PROVIDERS: PCP Emergency Medicine; Visit Provider Otolaryngology
DX: R42 Dizziness and giddiness (principal); H69.91 Unspecified Eustachian tube disorder, right ear
CPT/HCPCS: 70553; A9577

== ENCOUNTER 2020-06-30 13:07 | Outpatient (CLI) | payer OTHER, SELFPAY ==
--- NOTE | ~2020-06-30 | CT_ITS ---
EXAMINATION: CT abdomen pelvis wo con DATE: 06/30/2020 13:28 INDICATION: Right flank pain TECHNIQUE: Computed tomography (CT) of the abdomen and pelvis was performed without intravenous contr ast. The dose-length product (DLP) was 179.42 mGy-cm. Automated exposure control and iterative recons truction technique were employed. COMPARISON: 01/04/2020 FINDINGS: A stable lingular nodule is consistent with old granulomatous disease. The heart size is no rmal. Cysts of the liver measure up to 1.7 cm and the left hepatic lobe. The spleen, pancreas, gallbl adder, and adrenal glands are normal. There are two nonobstructing 2 mm stones in the right kidney. T here are two nonobstructing 4 mm stones in the lower pole of the left kidney. No stones are identifie d in the ureters or bladder. There is no hydronephrosis or hydroureter. No pathologically enlarged ab dominal or pelvic lymph nodes are identified. There is calcified atherosclerosis of the aorta and man y of the other arteries. Surgical changes are noted in the distal sigmoid colon. Small fat-containing umbilical hernias are noted. There is mild lumbar spondylosis. IMPRESSION: 1. Bilateral nonobstructing nephrolithiasis. Reviewed, dictated and finalized at location A. RT FREIGHT SPECIALIST
== END 2020-06-30 13:08 | disposition home or self-care (01) ==
LOC: ANHIMG 13:09
PROVIDERS: PCP Emergency Medicine; Visit Provider Emergency Medicine
DX: N20.0 Calculus of kidney (principal)
CPT/HCPCS: 74176

== ENCOUNTER 2020-09-22 09:31 | Outpatient (CLI) | payer OTHER, SELFPAY ==
--- NOTE | ~2020-09-22 | CT_ITS ---
EXAMINATION: CT abdomen pelvis w con DATE: 09/22/2020 10:12 INDICATION: Unspecified abdominal pain. TECHNIQUE: Computed tomography (CT) of the abdomen and pelvis was performed with 100 mL Omnipaque 350 intravenous contrast. Automated exposure control and iterative reconstruction technique were employe d. The dose-length product was 218.50 mGy-cm. COMPARISON: CT abdomen and pelvis 06/30/2020 FINDINGS: The visualized portions of the lung bases demonstrate mild atelectasis. No pleural effusion . The heart size is normal. No pericardial effusion. There is a small sliding hiatal hernia. There ar e cysts in the liver measuring up to 17 mm. The gallbladder, spleen, pancreas, adrenal glands are nor mal. There is cortical thinning of the kidneys. There is a 2 mm stone in right kidney. There are two 3 mm stones in left kidney. There is a 6 mm cyst in left kidney. There is an umbilical hernia contain ing fat. There is diverticulosis of the colon without evidence of diverticulitis. There are no dilate d loops of bowel. The appendix is not visualized. There is an anastomosis in the sigmoid colon. There are no pathologically enlarged lymph nodes. There is no free intraperitoneal fluid. There is moderat e left sacroiliac joint osteoarthritis with a 1.9 cm subchondral cyst in the ilium. There is mild lum bar spondylosis. IMPRESSION: 1. Bilateral nonobstructing kidney stones. 2. Umbilical hernia containing fat. Reviewed, dictated and finalized at location A.
[2020-09-22 09:54] LABS: Estimated Glomerular Filt Rate > 60
== END 2020-09-22 09:32 | disposition home or self-care (01) ==
PROVIDERS: PCP Emergency Medicine; Visit Provider Emergency Medicine
DX: R10.9 Unspecified abdominal pain (principal); N20.0 Calculus of kidney; K42.9 Umbilical hernia without obstruction or gangrene; N28.1 Cyst of kidney, acquired; K57.30 Diverticulosis of large intestine without perforation or abscess without bleeding; M47.816 Spondylosis without myelopathy or radiculopathy, lumbar region; Z98.0 Intestinal bypass and anastomosis status
CPT/HCPCS: 74177; Q9967

== ENCOUNTER 2020-11-16 10:46 | Outpatient (CLI) | payer OTHER, SELFPAY ==
--- NOTE | ~2020-11-16 | XR_ITS ---
EXAMINATION: XR chest 2V DATE: 11/16/2020 11:33 INDICATION: History of hypertension TECHNIQUE: PA and lateral views of the chest are obtained. COMPARISON: 01/12/2019 FINDINGS: The lungs are free of acute opacities. There is no pleural effusion or pneumothorax. The ca rdiomediastinal silhouette is normal. There is mild thoracic spondylosis. IMPRESSION: 1. No acute cardiopulmonary abnormality. Reviewed, dictated and finalized at location B.
--- NOTE | 2020-11-16 11:00 | ECG_ITS ---
Measurements Intervals Kinde Rate: 75 P: -20 TX: 176 QRS: -37 QRSD: 89 T: 3 QT: 373 QTc: 417 Interpretive Statements SINUS RHYTHM LEFT AXIS DEVIATION INCOMPLETE RIGHT BUNDLE BRANCH BLOCK BORDERLINE R WAVE PROGRESSION, ANTERIOR LEADS BORDERLINE T WAVE ABNORMALITY- ANT/INF LEADS BASELINE ARTIFACT- I, II, III, AVR, AVL, AVF BORDERLINE ECG Electronically Signed On 11-16-2020 11:48:39 CDT by Anshul Mercado D.O.
== END 2020-11-16 10:47 | disposition home or self-care (01) ==
PROVIDERS: PCP Emergency Medicine; Visit Provider Surgery
DX: Z01.818 Encounter for other preprocedural examination (principal); K43.2 Incisional hernia without obstruction or gangrene; I45.10 Unspecified right bundle-branch block
CPT/HCPCS: 71046; 93005

== ENCOUNTER 2020-11-20 00:56 | Day surgery (SDC) | payer OTHER, SELFPAY ==
[2020-11-14 13:10] VITALS: BMI 23.2
[2020-11-20] VITALS (11 sets, daily range): BP systolic 129–169; BP diastolic 63–88; PULSE 70–96; RESP 14–20; TEMP 35.6–36.6; O2SAT 98–100
--- NOTE | 2020-11-20 09:32 | PM.HPGS ---
History of Present Illness History of Present Illness Consent: Risks, benefits, and alternativesOf an open ventral incisional hernia repair with mesh have been discussed and questions answered. Patient agrees to proceed with procedure. Chief complaint: ventral incisional hernia Narrative: Viktoriya oRbb is a 80 year old white female that recently presented to the office at the request of Dr Jordan for an evaluation of an umbilical area hernia. Patient had a CT scan of the abdomen and pelvis with contrast on 09/22/20 at [facility] that that showed bilateral nonobstructing kidney stones and umbilical hernia containing fat. Patient reports having abdominal pain and constant constipation. She reports she takes Colace once a night to help. She reports this still does not help. She reports that she has tried fiber in the past but this did nothing. She reports she is either has constipation or watery diarrhea that is uncontrollable. She reports that every time she eats no matter how small the meal is she has abdominal distention and abdominal pain. She reports she has no appetite and is having to force herself to eat. She reports she typically eats three meals a day. The bloating lasts all day. She has had multiple abdominal surgeries in the past with the most recent being a laparoscopic Min fundoplication and exploratory laparotomy for intraabdominal bleeding on 05/04/[address] Du. She reports ever since this surgery she has had trouble with her bowels. She has recently seen Dr Calvillo in 01/2020 and had a Freire bougie dilatation of the esophagus. She reports that her last colonoscopy was a year or two ago. Reports this was negative. She reports she has had a history of kidney stones, and reports that in the past she has had to have kidney stones blasted. She reports that the last time she had this done her kidney filled with blood and it took 9 months before this resolved. She also reports that she bruises easily, she reports she has never been seen by a cd reactor operator head in the past. After her office visit she did go to see a cd reactor operator head in [place]. He did some labs and has given her preop approval for proceeding with surgery. He does not feel that she has any bleeding dyscrasia. Review of Systems Constitutional: Constitutional: Reports no additional constitutional complaints, Reports fatigue and Denies malaise Eyes: Eyes: Denies change in vision and Denies loss of vision ENT: Reports Normal hearing present, Denies change in voice, Denies dizziness, Denies hoarseness and Denies sore throat Cardiovascular: Cardiovascular: Denies chest pain, Denies leg edema and Denies dyspnea Respiratory: Respiratory: Denies cough, Denies dyspnea and Denies wheezing Gastrointestinal: Gastrointestinal: Denies hematochezia, Denies change in bowel habits and Denies heartburn Comments: She has a history of a laparoscopic Min fundoplication approximately 2 years ago for recurrent GE reflux. History of previous sigmoid resection. Genitourinary: Genitourinary: Denies urinary frequency and Denies urinary incontinence Comments: She has a history of kidney stones. She still has small ones on each side that are not obstructing Neurologic: Reports Normal hearing present, Denies confusion, Denies dizziness, Denies loss of vision, Denies memory loss and Denies seizure-like activity Psychiatric: Psychiatric: Denies confusion, Denies depression and Denies memory loss Endocrine: Endocrine: Denies cold intolerance and Reports fatigue Hematologic/Lymphatic: Hematologic/Lymphatic: Denies easy bleeding and Reports easy bruising ( Specially on her arms.) Comments: Recent workup by a cd reactor operator head without any signs of a bleeding disorder. Allergic/Immunologic: Allergic/Immunologic: Denies wheezing PMFSH Past Medical History Medical History (Updated 10/09/20 @ 11:57 by Radha Santos) Chicken pox Diabetes Duodenal ulcer GERD (gastroesophageal reflux disease)
--- NOTE | 2020-11-20 10:19 | WPDANESEPPF ---
Anes - Initial Pre Proc Eval Procedure: Operation Date: 11/20/20 12:00 Proposed Procedures p Open Ventral Incisional Hernia Repair with Mesh - New Mayer MD Date/Time: 11/20/20 10:19 Surgeon: New Mayer MD Pre Op Diagnosis: ventral incisional hernia Patient Data Age: 80 Gender: F Height: 1.52 m Weight: 53.98 kg Allergies Allergy/AdvReac Type Severity Reaction Status Date / Time glimepiride AdvReac Intermediate Diarrhea Verified 11/14/20 13:04 meloxicam AdvReac Intermediate diarrhea Verified 11/14/20 13:04 metformin AdvReac Intermediate Diarrhea Verified 11/14/20 13:04 Ppcolte-Zji-Why Reductase AdvReac Intermediate NAUSEA/ABD. Verified 11/14/20 13:04 Inhibitor PAIN sitagliptin AdvReac Mild STOMACH Verified 11/14/20 13:04 UPSET Home Medications Medication Instructions Recorded Confirmed Type levothyroxine 100 mcg capsule 100 mcg PO DAILY #90 cap 06/14/20 11/14/20 Rx quetiapine 25 mg tablet 25 mg PO HS #90 tablet 07/03/20 11/14/20 Rx amlodipine 10 mg tablet 10 mg PO DAILY #90 tablet 07/10/20 11/14/20 Rx lisinopril 10 mg tablet 10 mg PO DAILY #90 tablet 09/29/20 11/14/20 Rx blood sugar diagnostic #100 ea 10/02/20 10/09/20 Rx blood-glucose meter #1 ea 10/02/20 10/09/20 Rx lancets #100 ea 10/02/20 10/09/20 Rx clonazepam 0.5 mg tablet 0.5 mg PO BID PRN 11/07/20 11/14/20 History lactulose 10 g PO DAILY 11/14/20 11/14/20 History promethazine 25 mg PO QID PRN 11/14/20 11/14/20 History Patient hx anesthesia problems: none Family hx anesthesia problems: none PMFSH Past Medical History Medical History (Updated 10/09/20 @ 11:57 by Radha Santos) Chicken pox Diabetes Duodenal ulcer GERD (gastroesophageal reflux disease) Hernia History of blood transfusion History of pulmonary embolism 2014 following Min fundoplication History of TIA (transient ischemic attack) HTN (hypertension) Hypoglycemia Hypothyroidism Kidney stones (~2015) history of lithotripsy in cysto. Osteopenia Osteoporosis DEXA scan November 2019 Psychiatric care PTSD (post-traumatic stress disorder) Right knee pain Thyroid disorder TIA (transient ischemic attack) Vitamin D deficiency disease Surgical History Surgical History (Reviewed 10/09/20 @ 10:51 by Brianne Birmingham [facility]) H/O thyroidectomy (~2009) partial History of appendectomy (~1949) History of bilateral cataract extraction 2017 History of bowel resection due to twisted bowel 2007 History of hysterectomy (~1970) History of Min fundoplication (~2014) History of removal of both ovaries (~1983) History of tonsillectomy History of total knee arthroplasty January 2018 with resurfacing and poly exchange on 12/29/2019 History of total right knee replacement January 2018 with patellar resurfacing December 29, 2019 Hx of colonoscopy with polypectomy December [address] Barrow Hx of cystoscopy with bilateral ureteral stents April 2015 Family History Family History (Reviewed 10/09/20 @ 10:51 by Brianne Birmingham [facility]) Father Acute myocardial infarction Mother Acute myocardial infarction Colon cancer Sibling Hypertension Diabetes mellitus Crohn's disease Sibling Hypertension Daughter Hypertension Daughter Hypertension Other Family history of blood dyscrasia Social History Social History (Reviewed 10/09/20 @ 10:51 by Brianne Birmingham [facility]) Social History: She uses marijuana every night. She has 3 daughters , for granddaughter's and 8 great grand children. Patient smoked 5 cigarettes a day for 3 years and quit 1969. She is . No alcohol. Primary care physician: Dr. Jamal Jordan Code status: Full code Durable power of commercial real estate attorney: None Smoking status: Former smoker Additional smoking assessment comments: 1-2 CIGARETTES/DAY MANY YRS AGO Alcohol intake: former Substance use: current Substance use type: marijuana Other substance usage details: PINCH HIT AT BEDTIME [place]
[2020-11-20] MEDS: KETOROLAC 15 MG/ML VIAL (*BKC) IV PUSH (11:11)
[2020-11-20] MEDS: ACETAMINOPHEN 500 MG TABLET 1000 MG PO (11:11)
[2020-11-20] MEDS: LACTATED RINGERS 1,000 ML 30 ML IV CONT ×2 (11:11→14:38)
[2020-11-20 11:23] LABS: Hematocrit 34.6 % (37.0-47.0); Hemoglobin 11.6 g/dL (12.0-15.0); Mean Corpuscular HGB Conc 33.5 g/dl (32-36); Mean Corpuscular Hemoglobin 30.5 pg (26-34); Mean Corpuscular Volume 91.1 fl (80-100); Mean Platelet Volume 12.6 fl (7.4-10.4); Platelet Count Result 194 k/mm3 (150-375); White Blood Count 4.1 K/mm3 (4.5-10.0)
--- NOTE | 2020-11-20 11:26 | WPDHPUPDATE1 ---
History and Physical Update Update Date/Time: 11/20/20 11:26 History and Physical has been reviewed, including an updated exam of the patient. There are NO changes in the patient's condition. Risks, benefits, and alternatives have been discussed and questions answered. Patient agrees to proceed with procedure.
[2020-11-20 11:38] LABS: Alanine Aminotransferase 12 U/L (4-35); Albumin Level 4.4 g/dL (3.5-5.1); Alkaline Phosphatase 66 U/L (38-126); Anion Gap 9 mmol/L (8-16); Aspartate Amino Transferase 28 U/L (14-36); Bilirubin,Total 0.9 mg/dL (0.2-1.3); Blood Urea Nitrogen 17 mg/dL (7-17); Calcium 9.2 mg/dL (8.4-10.2); Carbon Dioxide 23 mmol/L (22-30); Chloride 110 mmol/L (98-107); Estimated CRCL calculation 40 ml/min; Estimated Glomerular Filt Rate > 60; Glucose 98 mg/dL (65-110); Sodium 142 mmol/L (137-145)
[2020-11-20] MEDS: ceFAZolin 2 GM/D5W 50 ML 2 GM/50 ML BAG IVPB (12:00)
[2020-11-20] MEDS: BUPIVACAINE/EPINEPHRINE 0.5% 30 ML VIAL 20 ML INFILTRATE (12:25)
--- NOTE | 2020-11-20 14:39 | W.PM.PROC2 ---
Procedure Note - Detailed Date of Procedure 11/20/20 Pre-op Diagnosis ventral incisional hernia Near the umbilicus Post-op Diagnosis same Procedure Performed open mesh repair of a periumbilical ventral incisional hernia. 8 x 8 cm piece of polypropylene mesh applied in the rectal rectus position. Bilateral recto-rectus flaps 8 x 3 cm in size. Surgeon New Mayer MD Enrichment Teacher Didi BACK. OR speech pathologist assistant Anesthesia general Indications Pain, bulging, and her recurrent constipation possibly related to her ventral incisional hernia in the midline near the umbilicus Findings incarcerated omentum within a 2.5 x 3 cm fascial defect underlying the umbilicus slightly below and to the left of her midline scar which came around the right side of the umbilicus. Description of Procedure Patient was brought to the operative room room and after induction of adequate general trach anesthesia by Dangelo anesthesia we carefully prepped and draped seems tires mid abdomen. This was traced up with 4 towels and a IO band drape to protect the in mesh from the skin. Following this I outlined a curvilinear vertical midline scar surrounding the umbilicus just to the right near in the previous scar. Local anesthetic was placed in the skin and subcu tissues up and down this line. At approximately 10 cm long incision was made directly over the old scar and carried down through subcutaneous tissues. We dissected the umbilical hernia off the underside of the umbilicus and off the surrounding tissues with Bovie cautery and careful retraction. We dissected right down to the fascial defect circumferentially. At this point the hernia sac was removed and then we intraperitoneal eat dissected away the omental adhesions which were circumferential at this level. We dissected him back probably 1 cm beyond the edge of the fascial defect is on each side. Following this wall stent on the right side I carefully dissected the umbilicus off the underlying fascia identified the midline fascia may incision in the anterior rectus sheath just to the left of the midline fascia and made this the a cm length of the area of the defect. This way I extended it to a half to 3 center is above and below the fascial defect. We then dissected the rectus muscle up off the posterior rectus sheath for a distance of 3-4 cms underneath the rectus laterally to the left for an 8 cm distance from above the umbilicus to below the umbilicus. Following this I moved to the patient's left side and we worked from the superior to the inferior again carefully incising the anterior rectus sheath just lateral of midline and working the rectus muscle off the posterior rectus sheath for a distance of 3-4 cm laterally. The length above and below the umbilical area fascial defect was about 8 cm. This completed our retro rectus flaps. Then the midline fascia was easily brought together in the midline and run closed with of small bites of a 0 Prolene suture closing the midline fascia. Following this I measured and I selected an 8 x 8 cm piece of polypropylene mesh. An 0 Prolene suture was placed through the corner of the mesh on each side and these were left long such that he could be passed with a needle Passer through the anterior rectus sheath. Following this in each corner I passed the needle through the wound and through the anterior rectus sheath through the rectus muscle and into the right retro rectus space we grasped the sutures and pulled them up into each course of the corner of the mesh was pulled up in all directions and the mesh laid nicely in this retro rectus space covering the midline. The tail of the suture holding the midline closure together was brought up through the center of the mesh and tied to itself. This was done on both ends of the fascial closure done above. Following this in about 3 areas directly superior directly inferior several others 0 Vicryl was used to secure the mesh
[2020-11-20] MEDS: ONDANSETRON INJ 4 MG/2 ML VIAL IV PUSH (15:16)
[2020-11-20] MEDS: fentaNYL CITRATE INJ (*CRX) 100 MCG/2 ML VIAL 25 MCG IV PUSH ×4 (15:17→15:42)
--- NOTE | 2020-11-20 20:16 | SUR.PHASEII ---
BLADDER SCAN = 241 ML'S AT 2015
== END 2020-11-20 17:07 | disposition home or self-care (01) ==
PROVIDERS: PCP Emergency Medicine; Visit Provider Surgery
PROC: 0WQF0ZZ Repair Abdominal Wall, Open Approach (ICD-10-PCS; CPT 49561; principal; 2020-11-20 12:00)
DX: K43.0 Incisional hernia with obstruction, without gangrene (principal); E03.9 Hypothyroidism, unspecified; M81.0 Age-related osteoporosis without current pathological fracture; K21.9 Gastro-esophageal reflux disease without esophagitis; Z86.711 Personal history of pulmonary embolism; E11.649 Type 2 diabetes mellitus with hypoglycemia without coma; F43.10 Post-traumatic stress disorder, unspecified; E55.9 Vitamin D deficiency, unspecified; Z87.891 Personal history of nicotine dependence; F12.90 Cannabis use, unspecified, uncomplicated; R23.8 Other skin changes; R10.9 Unspecified abdominal pain; D64.9 Anemia, unspecified; E78.00 Pure hypercholesterolemia, unspecified; I10 Essential (primary) hypertension
CPT/HCPCS: 49561; 49568; 15734; 36415; 71046; 80053; 85027; 88302; 93005; A9270; C1781; J0690; J1100; J1885; J2405; J2704; J3010; J7120

== ENCOUNTER 2020-12-27 14:44 | Emergency (ER) | payer OTHER, SELFPAY ==
--- NOTE | ~2020-12-27 | XR_ITS ---
EXAMINATION: XR abdomen obstructive series DATE: 12/27/2020 16:41 INDICATION: Right upper quadrant abdominal pain. TECHNIQUE: Frontal supine and upright views of the abdomen were obtained. COMPARISON: CT dated 09/22/2020 FINDINGS: Gas and stool scattered throughout the nondilated colon. Small amount of gas within a small loop of n ondilated small bowel in the left lower quadrant. Anastomotic suture line at the distal sigmoid colon . No dilated loops of gas-filled bowel to suggest obstruction. No free intraperitoneal gas. [address] of stones at the inferior calyx of the left kidney multiple phleboliths in the pelvis. Visualized mid to lower lung zones are clear. Heart size is normal. Tortuous and atherosclerotic thoracic aorta . IMPRESSION: 1. No free intraperitoneal gas or dilated gas-filled loops of bowel to suggest obstruction. 2. Left nephrolithiasis. Reviewed, dictated and finalized at location A.
--- NOTE | ~2020-12-27 | CT_ITS ---
EXAMINATION: CT abdomen pelvis w con DATE: 12/27/2020 18:02 INDICATION: Right abdominal pain. TECHNIQUE: Computed tomography (CT) of the abdomen and pelvis was performed with 100 mL Omnipaque 350 intravenous contrast. Automated exposure control and iterative reconstruction technique were employe d. The dose-length product was 238.91 mGy-cm. COMPARISON: CT abdomen and pelvis 09/22/2020 FINDINGS: The visualized portions of the lung bases demonstrate mild atelectasis. No pleural effusion . The heart size is normal. No pericardial effusion. There are cysts in the liver measuring up to 17 mm. The gallbladder, spleen, pancreas, and adrenal glands are normal. There are two 1-2 mm stones in right kidney. There is a 3 mm stone in left kidney. There are cysts in left kidney measuring up to 8 mm. There is an anastomosis in the sigmoid colon. There is diverticulosis of the colon without eviden ce of diverticulitis. There are no dilated loops of bowel. The appendix is not visualized. There are no pathologically enlarged lymph nodes. There is no free intraperitoneal fluid. There are changes of ventral hernia repair with 1.9 x 0.4 x 2.0 cm midline seroma. There is mild thoracolumbar spondylosis . IMPRESSION: 1. Interval changes of umbilical hernia repair with small seroma. 2. Small bilateral nonobstructing kidney stones. Reviewed, dictated and finalized at location A.
[2020-12-27 14:59] VITALS: BP 148/83; PULSE 73; RESP 16; TEMP 37; O2SAT 100
[2020-12-27 15:21] LABS: Basophils Absolute Auto 0.1 K/mm3 (0.0-0.1); Basophils Percent Auto 1.5 % (0.2-1.2); Eosinophils Absolute Auto 0.1 K/mm3 (0-0.3); Eosinophils Percent Auto 1.1 % (0-4.4); Hematocrit 35.4 % (37.0-47.0); Hemoglobin 11.5 g/dL (12.0-15.0); Immature Granulocyte Absolute 0.03 K/mm3 (0.00-0.031); Immature Granulocyte Percent A 0.6 % (0-0.5); Lymphocytes Absolute Auto 1.28 K/mm3 (0.9-3.2); Lymphocytes Percent Auto 24.2 % (18.3-44.2); Mean Corpuscular HGB Conc 32.5 g/dl (32-36); Mean Corpuscular Hemoglobin 30.2 pg (26-34); Mean Corpuscular Volume 92.9 fl (80-100); Mean Platelet Volume 11.8 fl (7.4-10.4); Monocytes Absolute Auto 0.5 K/mm3 (0.1-0.6); Monocytes Percent Auto 8.5 % (2.6-8.5); Neutrophils Absolute Auto 3.4 K/mm3 (1.3-6.7); Neutrophils Percent Auto 64.1 % (45.5-73.1); Platelet Count Result 230 k/mm3 (150-375); Red Blood Count 3.81 M/mm3 (4.2-5.4); Red Cell Distribution Width 12.5 % (11.5-14.5); White Blood Count 5.3 K/mm3 (4.5-10.0)
[2020-12-27 15:27] LABS: Add Urine Microscopic? NO; Appearance Urine Clear (Clear); Bilirubin Urine Negative (Negative); Blood Urine Negative (Negative); Color Urine Yellow (Yellow); Glucose Urine UA Negative (Negative); Ketones Urine Negative (Negative); Leukocyte Esterase Ur Negative LEU/UL (Negative); Nitrate Urine Negative (Negative); Protein Urine Negative (Negative); Urobilinogen Urine Negative mg/dL (<2.0)
[2020-12-27 15:31] LABS: Anion Gap 9 mmol/L (8-16); Blood Urea Nitrogen 15 mg/dL (7-17); Calcium 9.2 mg/dL (8.4-10.2); Carbon Dioxide 25 mmol/L (22-30); Chloride 109 mmol/L (98-107); Estimated CRCL calculation 40 ml/min; Estimated Glomerular Filt Rate > 60; Glucose 88 mg/dL (65-110); Potassium 3.5 mmol/L (3.4-5.0); Sodium 143 mmol/L (137-145)
[2020-12-27 17:31] VITALS: BP 116/98; PULSE 72; RESP 16; TEMP 36.8; O2SAT 94
--- NOTE | 2020-12-27 17:47 | ED.ABDPAIN ---
HPI - Abdominal Pain General Chief Complaint: Abdominal Pain Stated Complaint: r sided abd pain Time Seen by Provider: 12/27/20 17:37 Source: patient, RN notes reviewed and old records reviewed Mode of arrival: ambulatory Limitations: no limitations History of Present Illness HPI narrative: This is an 80 year old female who presents for evaluation right upper abdominal pain. Patient reports she had a ventral hernia repair performed over 1 month ago. She reports intermittent lower abdominal pain but that was improving. She states yesterday she was feeling great. Today she developed right upper abdominal pain that radiates to her back. She reports nausea and vomiting. She has history of kidney stone and this pain seems similar. She also reports her urine seems darker than normal. She denies fever, chills, cough or shortness of breath. Related Data Home Medications Medication Instructions Recorded Confirmed clonazepam 0.5 mg tablet 0.5 mg PO BID PRN 11/07/20 12/05/20 lactulose 10 g PO DAILY 11/14/20 12/05/20 Allergies Allergy/AdvReac Type Severity Reaction Status Date / Time glimepiride AdvReac Intermediate Diarrhea Verified 12/27/20 18:05 meloxicam AdvReac Intermediate diarrhea Verified 12/27/20 18:05 metformin AdvReac Intermediate Diarrhea Verified 12/27/20 18:05 Uneffln-Nky-Qhp Reductase AdvReac Intermediate NAUSEA/ABD. Verified 12/27/20 18:05 Inhibitor PAIN sitagliptin AdvReac Mild STOMACH Verified 12/27/20 18:05 UPSET Review of Systems Review of Systems: All systems reviewed & are unremarkable except as noted in HPI and below PMFSH Past Medical History Medical History Chicken pox Diabetes Duodenal ulcer GERD (gastroesophageal reflux disease) Hernia History of blood transfusion History of pulmonary embolism 2014 following Min fundoplication History of TIA (transient ischemic attack) HTN (hypertension) Hypoglycemia Hypothyroidism Kidney stones (~2015) history of lithotripsy in cysto. Osteopenia Osteoporosis DEXA scan November 2019 Psychiatric care PTSD (post-traumatic stress disorder) Right knee pain Thyroid disorder TIA (transient ischemic attack) Vitamin D deficiency disease Surgical History Surgical History H/O thyroidectomy (~2008) partial History of appendectomy (~1949) History of bilateral cataract extraction 2017 History of bowel resection due to twisted bowel 2007 History of hysterectomy (~1970) History of incisional hernia repair 11/20/2020 - Open mesh repair of periumbilical ventral incisional hernia with 8x8cm piece of polypropylene mesh applied in the recto-rectus position. Bilateral recto-rectus flaps 8x3cm in size. History of Min fundoplication (~2014) History of removal of both ovaries (~1983) History of tonsillectomy History of total knee arthroplasty January 2018 with resurfacing and poly exchange on 12/29/2019 History of total right knee replacement January 2018 with patellar resurfacing December 29, 2019 Hx of colonoscopy with polypectomy December [address] Barrow Hx of cystoscopy with bilateral ureteral stents April 2015 Family History Family History Father Acute myocardial infarction Mother Acute myocardial infarction Colon cancer Sibling Hypertension Diabetes mellitus Crohn's disease Sibling Hypertension Daughter Hypertension Daughter Hypertension Other Family history of blood dyscrasia Social History Social History Social History: She uses marijuana every night. She has 3 daughters , for granddaughter's and 8 great grand children. Patient smoked 5 cigarettes a day for 3 years and quit 1969. She is . No alcohol. Primary care physician: Dr. Jamal Jordan Code status:
[2020-12-27] MEDS: SODIUM CHLORIDE 0.9% IV 1,000 ML 999 ML IV CONT (18:05)
[2020-12-27] MEDS: HYDROmorphone HCL INJ (*CRX) 1 MG/ML SYR 0.5 MG IV PUSH (18:06)
[2020-12-27] MEDS: ONDANSETRON INJ 4 MG/2 ML VIAL IV PUSH (18:06)
[2020-12-27 18:36] VITALS: TEMP 36.8
[2020-12-27 19:47] VITALS: BP 126/86; PULSE 70; RESP 16; O2SAT 99
== END 2020-12-27 19:49 | disposition home or self-care (01) ==
PROVIDERS: Emergency Medicine; Emergency Provider General Practice; PCP Emergency Medicine
DX: N20.0 Calculus of kidney (principal)
CPT/HCPCS: 36415; 74019; 74177; 80048; 81003; 85025; 96361; 96374; 96375; 99284; J1170; J2405; J7030; Q9967

== ENCOUNTER 2021-11-20 18:50 | Emergency (ER) | payer OTHER, SELFPAY ==
--- NOTE | ~2021-11-20 | CT_ITS ---
EXAMINATION: CT abdomen pelvis w con DATE: 11/20/2021 20:45 INDICATION: abdominal pain, and bloating TECHNIQUE: Computed tomography (CT) of the abdomen and pelvis was performed with 100 mL Omnipaque-300 intravenous contrast. Automated exposure control and iterative reconstruction technique were employe d. The dose-length product was 285.27 mGy-cm. COMPARISON: None. FINDINGS: Lower thorax: Senescent and atelectatic change. Benign left lower lung nodular opacities. Liver: Simple left lobe cyst. Additional hypodensities that are too small to characterize. Biliary/Gallbladder: Gallbladder is normal. No bile duct dilation. Pancreas: No mass or duct dilation. Spleen: Normal. Adrenals:No mass. Kidneys: Bilateral nonobstructive calculi. Left hypodensities, too small to characterize but most lik elana represent cysts. No hydronephrosis. GI tract: No small or large bowel dilation. Appendix not visualized. Distal sigmoid anastomosis. Dive rticulosis without diverticulitis. Mesentery/Peritoneum: No ascites, mass, or free air. Retroperitoneum: No mass. Atherosclerotic abdominal aortic and/or arterial calcifications. Pelvis: Uterus not visualized, otherwise the pelvic organs are within normal limits. Soft Tissues: Soft tissues and body wall unremarkable. Bones: No acute osseous finding. IMPRESSION: No acute abdominopelvic process detected. Reviewed, dictated and finalized at location K.
[2021-11-20 18:54] VITALS: BP 142/72; PULSE 94; RESP 20; TEMP 37.2; O2SAT 100
[2021-11-20 19:05] VITALS: BP 130/69; PULSE 93; TEMP 36.7; O2SAT 99
--- NOTE | 2021-11-20 19:42 | ED.ABDPAIN ---
HPI - Abdominal Pain General Chief Complaint: Abdominal Pain Stated Complaint: not feeling well Time Seen by Provider: 11/20/21 18:59 Source: patient, RN notes reviewed and old records reviewed Mode of arrival: ambulatory Limitations: no limitations History of Present Illness HPI narrative: This is an 81 year old female who present for evaluation of abdominal pain. Starting on Friday , she developed mid abdominal cramping after eating her toast. Her pain continues to worse and occurs with she tries to eat or drink any thing. She also reports associated bloating and nausea . She had a bowel movement today, and she states she does not have regular bowel movement due to prior surgical history. She denies fever or chills. She states she has not felt well for several months Related Data Allergies Allergy/AdvReac Type Severity Reaction Status Date / Time glimepiride AdvReac Intermediate Diarrhea Verified 11/20/21 19:28 meloxicam AdvReac Intermediate diarrhea Verified 11/20/21 19:28 metformin AdvReac Intermediate Diarrhea Verified 11/20/21 19:28 Vtxljga-PLZ-PrI Reductase AdvReac Intermediate NAUSEA/ABD. Verified 11/20/21 19:28 Inhibitor PAIN [Jfruwve-Elf-Eje Reductase Inhibitor] sitagliptin AdvReac Mild STOMACH Verified 11/20/21 19:28 UPSET Review of Systems Review of Systems: All systems reviewed & are unremarkable except as noted in HPI and below Constitutional: Constitutional: Denies chills, Reports fatigue and Denies fever(s) Eyes: Eyes: Denies change in vision Cardiovascular: Cardiovascular: Denies chest pain Respiratory: Respiratory: Denies chest congestion and Denies cough Gastrointestinal: Gastrointestinal: Reports abdominal pain, Reports bloating, Reports constipation, Reports nausea and Reports vomiting Genitourinary: Genitourinary: Denies nocturia and Denies dysuria Neurologic: Reports headache(s) [facility] Past Medical History Medical History (Updated 11/21/21 @ 03:11 by Celia Desir MD) Chicken pox Diabetes Duodenal ulcer GERD (gastroesophageal reflux disease) Hernia History of blood transfusion History of pulmonary embolism 2014 following Min fundoplication History of TIA (transient ischemic attack) HTN (hypertension) Hypoglycemia Hypothyroidism Kidney stones (~2015) history of lithotripsy in cysto. Meningioma Osteopenia Osteoporosis DEXA scan November 2019 Psychiatric care PTSD (post-traumatic stress disorder) Right knee pain Thyroid disorder TIA (transient ischemic attack) Vitamin D deficiency disease Surgical History Surgical History H/O thyroidectomy (~2008) partial History of appendectomy (~1949) History of bilateral cataract extraction 2017 History of bowel resection due to twisted bowel 2007 History of hysterectomy (~1970) History of incisional hernia repair 11/20/2020 - Open mesh repair of periumbilical ventral incisional hernia with 8x8cm piece of polypropylene mesh applied in the recto-rectus position. Bilateral recto-rectus flaps 8x3cm in size. History of Min fundoplication (~2014) History of removal of both ovaries (~1983) History of tonsillectomy History of total knee arthroplasty January 2018 with resurfacing and poly exchange on 12/29/2019 History of total right knee replacement January 2018 with patellar resurfacing December 29, 2019 Hx of colonoscopy with polypectomy December [address] Barrow Hx of cystoscopy with bilateral ureteral stents April 2015 Family History Family History Father Acute myocardial infarction Mother Acute myocardial infarction Colon cancer Sibling Hypertension Diabetes mellitus Crohn's disease Sibling Hypertension Daughter Hypertension Daughter Hypertension Other Family history of blood dyscrasia Social History Social History (Reviewed 04/04/21
[2021-11-20 19:45] LABS: Basophils Absolute Auto 0.1 K/mm3 (0.0-0.1); Basophils Percent Auto 1.4 % (0.2-1.2); Eosinophils Absolute Auto 0.1 K/mm3 (0-0.3); Hematocrit 32.7 % (37.0-47.0); Hemoglobin 10.5 g/dL (12.0-15.0); Immature Granulocyte Absolute 0.04 K/mm3 (0.00-0.031); Immature Granulocyte Percent A 0.9 % (0-0.5); Lymphocytes Absolute Auto 0.71 K/mm3 (0.9-3.2); Lymphocytes Percent Auto 16.1 % (18.3-44.2); Mean Corpuscular HGB Conc 32.1 g/dl (32-36); Mean Corpuscular Hemoglobin 30.5 pg (26-34); Mean Corpuscular Volume 95.1 fl (80-100); Mean Platelet Volume 10.8 fl (7.4-10.4); Monocytes Absolute Auto 0.6 K/mm3 (0.1-0.6); Monocytes Percent Auto 13.8 % (2.6-8.5); Neutrophils Absolute Auto 2.9 K/mm3 (1.3-6.7); Neutrophils Percent Auto 65.8 % (45.5-73.1); Platelet Count Result 214 k/mm3 (150-375); Red Blood Count 3.44 M/mm3 (4.2-5.4); Red Cell Distribution Width 12.7 % (11.5-14.5); White Blood Count 4.4 K/mm3 (4.5-10.0)
[2021-11-20] MEDS: SODIUM CHLORIDE 0.9% IV 1,000 ML 999 ML IV CONT (19:50)
[2021-11-20] MEDS: ONDANSETRON INJ 4 MG/2 ML VIAL IV PUSH (19:50)
[2021-11-20 19:54] LABS: Lactic Acid Reflex 0.8 mmol/L (0.7-2.0)
[2021-11-20 19:57] LABS: Alanine Aminotransferase 14 U/L (6-35); Albumin Level 3.7 g/dL (3.5-5.1); Alkaline Phosphatase 74 U/L (38-126); Anion Gap 9 mmol/L (8-16); Aspartate Amino Transferase 24 U/L (14-36); Bilirubin,Total 0.6 mg/dL (0.2-1.3); Blood Urea Nitrogen 15 mg/dL (7-17); Calcium 8.3 mg/dL (8.4-10.2); Carbon Dioxide 23 mmol/L (22-30); Chloride 109 mmol/L (98-107); Estimated CRCL calculation 35 ml/min; Estimated Glomerular Filt Rate 60; Glucose 118 mg/dL (65-110); Lipase 29 U/L (23-300); Potassium 3.6 mmol/L (3.4-5.0); Sodium 141 mmol/L (137-145)
[2021-11-20 20:16] LABS: Appearance Urine Clear (Clear); Bilirubin Urine 1+ (Negative); Blood Urine Negative (Negative); Color Urine Yellow (Yellow); Glucose Urine UA Negative (Negative); Ketones Urine Trace mg/dL (Negative); Leukocyte Esterase Ur 1+ LEU/UL (Negative); Nitrate Urine Negative (Negative); Protein Urine Negative (Negative); Specific Grav Ur 1.025 (1.001-1.035); Urobilinogen Urine 0.2 mg/dL (<2.0); pH Urine 5.5 (5.0-9.0)
[2021-11-20 20:30] LABS: Bacteria Urine Trace /hpf; Mucus Urine Rare /lpf; Squamous Epithelial Cell Urine Rare /hpf (Few)
[2021-11-20 20:32] LABS: Add Urine Microscopic? YES
[2021-11-20 20:48] LABS: SARS-CoV-2 RNA PCR Negative
[2021-11-20 21:50] VITALS: BP 127/66; PULSE 89; RESP 15; O2SAT 99
[2021-11-20 22:32] VITALS: BP 122/55; PULSE 85; RESP 18; O2SAT 98
== END 2021-11-20 22:30 | disposition home or self-care (01) ==
PROVIDERS: Emergency Provider General Practice; PCP Registered Nurse
DX: R10.13 Epigastric pain (principal); Z20.822 Contact with and (suspected) exposure to COVID-19; E11.9 Type 2 diabetes mellitus without complications; I10 Essential (primary) hypertension; M85.80 Other specified disorders of bone density and structure, unspecified site; M81.0 Age-related osteoporosis without current pathological fracture; E55.9 Vitamin D deficiency, unspecified; Z87.442 Personal history of urinary calculi; K21.9 Gastro-esophageal reflux disease without esophagitis; Z86.711 Personal history of pulmonary embolism; Z86.73 Personal history of transient ischemic attack (TIA), and cerebral infarction without residual deficits; E89.0 Postprocedural hypothyroidism; Z98.42 Cataract extraction status, left eye; Z98.41 Cataract extraction status, right eye; Z90.49 Acquired absence of other specified parts of digestive tract; Z96.651 Presence of right artificial knee joint; Z87.891 Personal history of nicotine dependence
CPT/HCPCS: 36415; 51701; 74177; 80053; 81001; 83605; 83690; 85025; 87077; 87086; 87186; 96361; 96365; 96375; 99284; C9803; J0131; J2405; J7030; Q9967; U0003; U0005

== ENCOUNTER 2021-11-29 09:47 | Emergency (ER) | payer OTHER, SELFPAY ==
--- NOTE | 2021-11-29 09:55 | ED.URI ---
HPI - URI/Sore Throat General Chief Complaint: Upper Respiratory Infection Stated Complaint: cough/sob Time Seen by Provider: 11/29/21 09:55 Source: patient Mode of arrival: ambulatory Limitations: no limitations History of Present Illness HPI Narrative: Ms. Robb is a 81-year-old female patient presenting to the clinic today with complaints of nonproductive cough and shortness of breath x4 days. She reports she was not feeling well last week and went to the ER for this and was diagnosed with a urinary tract infection and was given cefuroxime for the UTI. States that she does not have a COVID and does not feel as though she needs to be tested for this. She denies any fever or chills. She denies any known exposure to anybody with COVID, flu, or strep. She denies any history of of COPD or asthma. She denies having any chest pain. MD elicited complaint: cough and other (Shortness of breath) Related Data Home Medications Medication Instructions Recorded Confirmed Miralax 11/29/21 cefuroxime axetil 250 mg tablet mg 11/29/21 Allergies Allergy/AdvReac Type Severity Reaction Status Date / Time glimepiride AdvReac Intermediate Diarrhea Verified 11/20/21 19:28 meloxicam AdvReac Intermediate diarrhea Verified 11/20/21 19:28 metformin AdvReac Intermediate Diarrhea Verified 11/20/21 19:28 Msgzvjh-RDD-TpT Reductase AdvReac Intermediate NAUSEA/ABD. Verified 11/20/21 19:28 Inhibitor PAIN [Ugzkfrg-Kka-The Reductase Inhibitor] sitagliptin AdvReac Mild STOMACH Verified 11/20/21 19:28 UPSET Review of Systems Review of Systems: Pertinent positives per HPI. Patient denies any fever, chills, rash, headache, visual changes, dizziness, chest pain, palpitations, nausea, vomiting, diarrhea, constipation, abdominal pain, or any urinary issues. [facility] Past Medical History Medical History Chicken pox Diabetes Duodenal ulcer GERD (gastroesophageal reflux disease) Hernia History of blood transfusion History of pulmonary embolism 2014 following Min fundoplication History of TIA (transient ischemic attack) HTN (hypertension) Hypoglycemia Hypothyroidism Kidney stones (~2015) history of lithotripsy in cysto. Meningioma Osteopenia Osteoporosis DEXA scan November 2019 Psychiatric care PTSD (post-traumatic stress disorder) Right knee pain Thyroid disorder TIA (transient ischemic attack) Vitamin D deficiency disease Surgical History Surgical History H/O thyroidectomy (~2008) partial History of appendectomy (~1949) History of bilateral cataract extraction 2017 History of bowel resection due to twisted bowel 2007 History of hysterectomy (~1970) History of incisional hernia repair 11/20/2020 - Open mesh repair of periumbilical ventral incisional hernia with 8x8cm piece of polypropylene mesh applied in the recto-rectus position. Bilateral recto-rectus flaps 8x3cm in size. History of Min fundoplication (~2014) History of removal of both ovaries (~1983) History of tonsillectomy History of total knee arthroplasty January 2018 with resurfacing and poly exchange on 12/29/2019 History of total right knee replacement January 2018 with patellar resurfacing December 29, 2019 Hx of colonoscopy with polypectomy December [address] Barrow Hx of cystoscopy with bilateral ureteral stents April 2015 Family History Family History Father Acute myocardial infarction Mother Acute myocardial infarction Colon cancer Sibling Hypertension Diabetes mellitus Crohn's disease Sibling Hypertension Daughter Hypertension Daughter Hypertension Other Family history of blood dyscrasia Social History Social History Social History: She uses marijuana rachele
[2021-11-29 09:58] VITALS: BP 122/70; PULSE 98; RESP 18; TEMP 36.5; O2SAT 100
== END 2021-11-29 10:10 | disposition home or self-care (01) ==
PROVIDERS: Emergency Provider Nurse Practitioner Family; PCP Registered Nurse
DX: J22 Unspecified acute lower respiratory infection (principal); Z87.891 Personal history of nicotine dependence; E11.9 Type 2 diabetes mellitus without complications; K21.9 Gastro-esophageal reflux disease without esophagitis; Z86.711 Personal history of pulmonary embolism; Z86.73 Personal history of transient ischemic attack (TIA), and cerebral infarction without residual deficits; I10 Essential (primary) hypertension; E03.9 Hypothyroidism, unspecified; M85.80 Other specified disorders of bone density and structure, unspecified site; M81.0 Age-related osteoporosis without current pathological fracture; Z98.42 Cataract extraction status, left eye; Z98.41 Cataract extraction status, right eye; Z96.651 Presence of right artificial knee joint
CPT/HCPCS: 99213; G0463

== ENCOUNTER 2021-12-08 09:47 | Outpatient (CLI) | payer OTHER, SELFPAY ==
[2021-12-08 10:31] LABS: Basophils Absolute Auto 0.1 K/mm3 (0.0-0.1); Basophils Percent Auto 1.5 % (0.2-1.2); Eosinophils Absolute Auto 0.1 K/mm3 (0-0.3); Eosinophils Percent Auto 1.5 % (0-4.4); Hemoglobin 11.9 g/dL (12.0-15.0); Immature Granulocyte Absolute 0.13 K/mm3 (0.00-0.031); Immature Granulocyte Percent A 2.8 % (0-0.5); Lymphocytes Percent Auto 23.8 % (18.3-44.2); Mean Corpuscular HGB Conc 31.3 g/dl (32-36); Mean Corpuscular Hemoglobin 30.1 pg (26-34); Mean Platelet Volume 10.8 fl (7.4-10.4); Monocytes Absolute Auto 0.5 K/mm3 (0.1-0.6); Monocytes Percent Auto 11.7 % (2.6-8.5); Neutrophils Absolute Auto 2.7 K/mm3 (1.3-6.7); Neutrophils Percent Auto 58.7 % (45.5-73.1); Platelet Count Result 366 k/mm3 (150-375); Red Blood Count 3.96 M/mm3 (4.2-5.4); White Blood Count 4.6 K/mm3 (4.5-10.0)
[2021-12-08 10:33] LABS: Appearance Urine Clear (Clear); Bilirubin Urine Negative (Negative); Blood Urine Negative (Negative); Color Urine Yellow (Yellow); Glucose Urine UA Negative (Negative); Ketones Urine Negative (Negative); Leukocyte Esterase Ur Negative LEU/UL (Negative); Nitrate Urine Negative (Negative); Protein Urine Negative (Negative); Urobilinogen Urine 0.2 mg/dL (<2.0)
[2021-12-08 10:38] LABS: Add Urine Microscopic? NO
[2021-12-08 10:53] LABS: Alanine Aminotransferase 17 U/L (6-35); Albumin Level 4.2 g/dL (3.5-5.1); Alkaline Phosphatase 67 U/L (38-126); Anion Gap 8 mmol/L (8-16); Aspartate Amino Transferase 33 U/L (14-36); Bilirubin,Total 1.3 mg/dL (0.2-1.3); Blood Urea Nitrogen 18 mg/dL (7-17); Calcium 9.3 mg/dL (8.4-10.2); Carbon Dioxide 27 mmol/L (22-30); Chloride 103 mmol/L (98-107); Creatine Kinase 28 U/L (30-135); Estimated Glomerular Filt Rate > 60; Glucose 126 mg/dL (65-110); Sodium 138 mmol/L (137-145); Uric Acid 5.4 mg/dL (2.5-7.5)
[2021-12-08 11:11] LABS: Complement C3 145 mg/dL (88-165)
[2021-12-08 12:05] LABS: Erythrocyte Sedimentation Rate 42 mm/hr (0-20)
[2021-12-11 02:40] LABS: Thyroid Peroxidase Antibodies <1 IU/mL (<9)
[2021-12-13 04:21] LABS: Aldolase 5.5 U/L (<=8.1); Angiotensin Converting Enzyme 5 U/L (9-67)
[2021-12-14 14:06] LABS: ANCA Screen Negative (Negative); Myeloperoxidase Ab <1.0 AI (<1.0); Proteinase-3 Ab <1.0 AI (<1.0); S cerevisiae Ab (IgA) 7.6 U (<=20.0)
[2021-12-15 11:15] LABS: SM Antibody <1.0; SM/RNP Antibody <1.0; SS-A <1.0; SS-B <1.0
[2021-12-19 14:49] LABS: Gliadin AB, IgG <1.0; Tissue Transglutaminase IgG Ab <1.0
== END 2021-12-08 09:48 | disposition home or self-care (01) ==
PROVIDERS: PCP Registered Nurse; Visit Provider Internal Medicine
DX: M19.90 Unspecified osteoarthritis, unspecified site (principal)
CPT/HCPCS: 36415; 80053; 81003; 82085; 82164; 82550; 83516; 84443; 84550; 85025; 85652; 86036; 86038; 86140; 86160; 86225; 86235; 86255; 86376; 86671

== ENCOUNTER 2021-12-21 10:18 | Outpatient (CLI) | payer OTHER, SELFPAY ==
--- NOTE | ~2021-12-21 | XR_ITS ---
EXAMINATION: XR chest 2V 12/21/2021 10:40 INDICATION: Shortness of breath PROCEDURE: 2 view chest COMPARISON: Comparison to multiple prior studies sequentially, with oldest reviewed study dated 05/09. FINDINGS: The lungs are clear. The cardiomediastinal silhouette is within normal limits. There are no pleural effusions. There is no pneumothorax suspected. IMPRESSION: 1: NO ACUTE CARDIOPULMONARY DISEASE. Reviewed, dictated and finalized at location A.
== END 2021-12-21 10:19 | disposition home or self-care (01) ==
PROVIDERS: PCP Registered Nurse; Visit Provider Internal Medicine
DX: R06.02 Shortness of breath (principal)
CPT/HCPCS: 71046

== ENCOUNTER 2021-12-30 12:13 | Outpatient (CLI) | payer OTHER, SELFPAY ==
--- NOTE | ~2021-12-30 | MR_ITS ---
EXAMINATION: MR hand LT wo/w con DATE: 12/30/2021 14:17 INDICATION: Left hand pain. Arthritis. TECHNIQUE: Magnetic resonance imaging (MRI) of the left hand was performed without and with 10 mL Mul tiHance intravenous contrast. COMPARISON: None. FINDINGS: Bone alignment is normal. No fracture. There is mild osteoarthritis of many of the intercar pal joints, carpometacarpal joints, metacarpophalangeal joints, and interphalangeal joints. There is moderate osteoarthritis of triscaphe joint and severe osteoarthritis of first carpometacarpal joint. There is moderate osteoarthritis of most of the interphalangeal joints. There is severe osteoarthriti s of second distal interphalangeal joint. There is enhancing synovium at many joints including the mi dcarpal compartment, first carpometacarpal joint, first, second, third, and fifth metacarpophalangeal joints, and first interphalangeal joint. The flexor and extensor tendons are normal. The musculature is normal. IMPRESSION: 1. Polyarticular osteoarthritis. Reviewed, dictated and finalized at location A.
--- NOTE | ~2021-12-30 | MR_ITS ---
EXAMINATION: MR hand RT wo/w con DATE: 12/30/2021 14:29 INDICATION: Right hand pain. Arthritis. TECHNIQUE: Magnetic resonance imaging (MRI) of the right hand was performed without and with 10 mL Mu ltiHance intravenous contrast. COMPARISON: None. FINDINGS: Bone alignment is normal. No fracture. There is mild osteoarthritis of many of the intercar pal joints, carpometacarpal joints, and metacarpophalangeal joints. There is severe osteoarthritis of triscaphe joint and first and second carpometacarpal joints. There is severe osteoarthritis of first and second metacarpophalangeal joints. There is moderate osteoarthritis of most of the interphalange al joints. There is severe osteoarthritis of second and third distal interphalangeal joints. There is enhancing synovium at most of the joints. The flexor and extensor tendons are normal. The musculatur e is unremarkable. IMPRESSION: 1. Polyarticular osteoarthritis. Reviewed, dictated and finalized at location A.
== END 2021-12-30 12:14 | disposition home or self-care (01) ==
PROVIDERS: PCP Registered Nurse; Visit Provider Internal Medicine
DX: M19.041 Primary osteoarthritis, right hand (principal); M19.042 Primary osteoarthritis, left hand
CPT/HCPCS: 73220; A9577

== ENCOUNTER → 2022-03-13 16:38 | Outpatient (CLI) | payer OTHER, SELFPAY ==
--- NOTE | ~2022-03-13 | XR_ITS ---
XR hand BI arthritis min 3V DATE: 03/13/2022 17:13 INDICATION: Osteoarthritis of both hands TECHNIQUE: Multiple views of both hands COMPARISON: 12/30/2021 MR examination of both hands FINDINGS: There is polyarticular osteoarthritis involving particularly the triscaphe and first carpom etacarpal joints and interphalangeal joints, especially the proximal and distal interphalangeal joint s of the right third digit. There is involvement of the metacarpophalangeal joints as well, most prom inent at the right second metacarpophalangeal joint. No erosive change. No fracture, dislocation, periosteal reaction or bone destruction. Slight chondrocalcinosis at the ri t wrist. IMPRESSION: Prominent polyarticular osteoarthritis Reviewed, dictated and finalized at location B. [address] [facility]
== END ==
PROVIDERS: PCP Plastic Surgery; Visit Provider Plastic Surgery
DX: M19.041 Primary osteoarthritis, right hand (principal); M19.042 Primary osteoarthritis, left hand
CPT/HCPCS: 73130

== ENCOUNTER 2023-07-01 09:38 | Day surgery (SDC) | payer OTHER, SELFPAY ==
[2023-06-23 10:27] VITALS: BMI 23.2
--- NOTE | ~2023-07-01 | XR_ITS ---
EXAMINATION: XR fluoroscopy no charge INDICATION: Right genicular nerve block TECHNIQUE: Eight intraoperative fluoroscopic images are submitted for review. Total fluoroscopic time was 14.6 seconds. COMPARISON: None available FINDINGS: Fluoroscopic images demonstrate injections at four sites about the knee. Please refer to pr ocedure note for full details. IMPRESSION: 1. Please refer to procedure note for full details. Reviewed, dictated and finalized at location B. [employer]
[2023-07-01 11:02] VITALS: BP 153/71; PULSE 81; RESP 16; TEMP 36.6; O2SAT 100
--- NOTE | 2023-07-01 11:14 | WPDHPUPDATE1 ---
History and Physical Update Update Date/Time: 07/01/23 11:14 History and Physical has been reviewed, including an updated exam of the patient. There are NO changes in the patient's condition. Risks, benefits, and alternatives have been discussed and questions answered. Patient agrees to proceed with procedure.
--- NOTE | 2023-07-01 11:15 | W.PM.PROC2 ---
Procedure Note - Detailed Date of Procedure 07/01/23 Pre-op Diagnosis Pain due to internal orthopedic prosthetic devices, arthralgia right knee Post-op Diagnosis Same Procedure Performed right genicular nerve blocks x3, vastus intermedius nerve block x1 addressing the right knee under fluoroscopic guidance with contrast control. Surgeon Dani Mojica MD Anesthesia Local Description of Procedure INFORMED CONSENT: Risks, benefits and alternatives to the procedure were discussed in detail with the patient who expressed explicit understanding and consent to proceed. Patient was informed verbally and in written form regarding the risks associated with the procedure including the low risk of serious infection, bleeding/bruising, allergic reaction, nerve injury, paralysis, procedural site pain or discomfort, worsening pain and/or mobility, failure to treat and disfigurement. The patient expressed explicit understanding and consent to proceed. All materials required for the procedure were available prior to procedure start. Site and side was marked prior to procedure and confirmed in the presence of the patient. PROCEDURE IN DETAIL: The patient was brought to the procedural suite and placed in the supine position. Patient was made comfortable with use of pillows under the head/shoulder, knees and ankles. Skin overlying anterior, medial and lateral surface of the knee joint on the right side was prepared broadly with ChloraPrep applicator and draped in a sterile manner. Aseptic technique was used throughout. The intersection between the femoral shaft and the medial femoral condyle, lateral femoral condyle and between the medial tibial plateau and tibial shaft were visualized in the AP view, as well as the line bisecting the femur and perpendicular to the short axis of the joint space 6cm proximal to the superior border of the patella with the knee partially flexed at 120 degrees. Local anesthesia was established by infiltration with approximately 3 mL of 2% lidocaine via a 1-1/2 inch 27-gauge needle at the skin and soft tissues overlying each site. A 25-gauge 3.5 inch quincke spinal needle was advanced until the needle tip contacted periosteum at each location, and was then walked off medially to approximate the position of the Superior and Inferior Medial Genicular nerves or laterally to approximate the position of the Superior Lateral Genicular nerve, and just superficial to femoral periosteum 6cm proximal to the patella to block the Vastus intermedius nerve. Needle depth was verified in the lateral view revealing appropriate needle positioning at each location. 0.5ml of Omnipaque 300 contrast medium was injected at each site confirming appropriate perineural spread of contrast without evidence of intravascular or intra-articular spread. After repeat negative aspiration, 0.5-1.0ml of 0.5% PF Bupivacaine was injected at each site to block the respective nerves. Needle was removed completely intact without difficulty. Images were saved and documented in the patient chart. Patient's skin was cleansed and sterile bandage applied. The patient tolerated the procedure well. The patient was transported to the recovery area in stable condition where they were observed for an appropriate amount of time prior to discharge, without evidence of complication. Patient was instructed on the appropriate completion of a pain diary over the next 12-24 hours. The patient was instructed to avoid excessive activity for the next 48 hours, including climbing and frequent use of stairs. Showers only for 48 hours. They were instructed not to drive or operate heavy machinery for 24 hours. They are to monitor for severe headaches, fevers, chills, night sweats, erythema/swelling at the site or any other signs of infection, bleeding/bruising, bowel or bladder changes as well as new pain, weakness or numbness in the upper or lower extremity. Should they notice these changes, they are instructed to call ou
[2023-07-01 11:28] VITALS: BP 154/73; PULSE 81; RESP 7; O2SAT 98
[2023-07-01 11:36] VITALS: BP 156/70; PULSE 79; RESP 12; O2SAT 100
[2023-07-01] MEDS: BUPivacaine HCL 0.5% 10 ML AMP 3 ML INFILTRATE (11:42)
[2023-07-01 11:44] VITALS: BP 144/80; PULSE 80; RESP 16; O2SAT 100
[2023-07-01] MEDS: LIDOCAINE HCL 1% PF INJ 5 ML VIAL 9 ML XX (11:44)
== END 2023-07-01 12:01 | disposition home or self-care (01) ==
PROVIDERS: PCP Registered Nurse; Visit Provider Anesthesiology Pain Medicine
PROC: (CPT 64454; principal; 2023-07-01 12:00)
DX: T84.84XA Pain due to internal orthopedic prosthetic devices, implants and grafts, initial encounter (principal); M25.561 Pain in right knee
CPT/HCPCS: 64454; 99199

== ENCOUNTER 2023-08-12 06:12 | Day surgery (SDC) | payer OTHER, SELFPAY ==
[2023-07-25 12:10] VITALS: BMI 23.2
--- NOTE | ~2023-08-12 | XR_ITS ---
EXAMINATION: XR fluoroscopy no charge DATE: 08/12/2023 09:03 INDICATION: Right knee pain due to internal orthopedic prosthetic devices TECHNIQUE: 9 intraoperative fluoroscopic views of right knee were obtained. I was not present. Fluoro scopy exposure time was 16 seconds. COMPARISON: Right knee radiographs 01/27/2023 FINDINGS: There is a total right knee arthroplasty with patellar resurfacing in near-anatomic alignme nt. [place] for multiple nerve blocks are noted about the knee. IMPRESSION: 1. Total right knee arthroplasty in near-anatomic alignment. 2. Multiple nerve blocks around the right knee. Reviewed, dictated and finalized at location E.
--- NOTE | 2023-08-12 06:37 | WPDHPUPDATE1 ---
History and Physical Update Update Date/Time: 08/12/23 06:37 History and Physical has been reviewed, including an updated exam of the patient. There are NO changes in the patient's condition. Risks, benefits, and alternatives have been discussed and questions answered. Patient agrees to proceed with procedure.
--- NOTE | 2023-08-12 06:38 | W.PM.PROC2 ---
Procedure Note - Detailed Date of Procedure 08/12/23 Pre-op Diagnosis Pain due to internal orthopedic prosthetic devices, Arthralgia right knee, chronic pain Post-op Diagnosis Same Procedure Performed Diagnostic Blockade (# 2) of the right Superior Medial, Inferior Medial and Superior Lateral Genicular Nerves, Vastus Intermedius nerve under Fluoroscopic Guidance (4 nerves blocked). Surgeon Dani Mojica MD Anesthesia MAC and Local Description of Procedure INFORMED CONSENT: Risks, benefits and alternatives to the procedure were discussed in detail with the patient who expressed explicit understanding and consent to proceed. Patient was informed verbally and in written form regarding the risks associated with the procedure including the low risk of serious infection, bleeding/bruising, allergic reaction, nerve injury, paralysis, procedural site pain or discomfort, worsening pain and/or mobility, failure to treat and disfigurement. The patient expressed explicit understanding and consent to proceed. All materials required for the procedure were available prior to procedure start. Site and side was marked prior to procedure and confirmed in the presence of the patient. PROCEDURE IN DETAIL: The patient was brought to the procedural suite and placed in the supine position. Patient was made comfortable with use of pillows under the head/shoulder, knees and ankles. IV moderate sedation was initiated without complication given patient's history of severe anxiety and hyperalgesia. Skin overlying anterior, medial and lateral surface of the knee joint on the right side was prepared broadly with ChloraPrep applicator and draped in a sterile manner. Aseptic technique was used throughout. The intersection between the femoral shaft and the medial femoral condyle, lateral femoral condyle and between the medial tibial plateau and tibial shaft were visualized in the AP view, as well as the line bisecting the femur and perpendicular to the short axis of the joint space 6cm proximal to the superior border of the patella with the knee partially flexed at 120 degrees. Local anesthesia was established by infiltration with approximately 3 mL of 2% lidocaine via a 1-1/2 inch 27-gauge needle at the skin and soft tissues overlying each site. A 25-gauge 3.5 inch quincke spinal needle was advanced until the needle tip contacted periosteum at each location, and was then walked off medially to approximate the position of the Superior and Inferior Medial Genicular nerves or laterally to approximate the position of the Superior Lateral Genicular nerve, and just superficial to femoral periosteum 6cm proximal to the patella to block the Vastus intermedius nerve. Needle depth was verified in the lateral view revealing appropriate needle positioning at each location. 0.5ml of Omnipaque 300 contrast medium was injected at each site confirming appropriate perineural spread of contrast without evidence of intravascular or intra-articular spread. After repeat negative aspiration, 0.5-1.0ml of 0.5% PF Bupivacaine was injected at each site to block the respective nerves. Needle was removed completely intact without difficulty. Images were saved and documented in the patient chart. Patient's skin was cleansed and sterile bandage applied. The patient tolerated the procedure well. The patient was transported to the recovery area in stable condition where they were observed for an appropriate amount of time prior to discharge, without evidence of complication. Patient was instructed on the appropriate completion of a pain diary over the next 12-24 hours. The patient was instructed to avoid excessive activity for the next 48 hours, including climbing and frequent use of stairs. Showers only for 48 hours. They were instructed not to drive or operate heavy machinery for 24 hours. They are to monitor for severe headaches, fevers, chills, night sweats, erythema/swelling at the site or any other signs of infection, bleedin
[2023-08-12 07:23] VITALS: BP 125/84; PULSE 106; RESP 20; TEMP 36.6; O2SAT 99
[2023-08-12 07:29] LABS: Glucose Point of Care 114 mg/dl (65-105)
--- NOTE | 2023-08-12 08:12 | WPDANESEPPF ---
Anes - Initial Pre Proc Eval Procedure: Operation Date: 08/12/23 08:15 Proposed Procedures p Diagnostic/Prognostic Block Genicular Nerve x3, Vastus Intermedius Nerve x1 to Temporarily Denervate Right Knee under Fluoroscopic Guidance with Contrast Control - Dani Mojica MD Date/Time: 08/12/23 08:12 Surgeon: Dani Mojica MD Pre Op Diagnosis: Pain due to internal orthopedic prosthetic devices Patient Data Age: 82 Gender: F Height: 1.52 m Weight: 55.2 kg Last Vital Signs Temp 36.6 C 08/12/23 07:23 Pulse 106 H 08/12/23 07:23 Resp 20 08/12/23 07:23 BP 125/84 08/12/23 07:23 Pulse Ox 99 08/12/23 07:23 O2 Del Method Room Air 08/12/23 07:23 Allergies Allergy/AdvReac Type Severity Reaction Status Date / Time glimepiride AdvReac Intermediate Diarrhea Verified 08/12/23 07:22 meloxicam AdvReac Intermediate diarrhea Verified 08/12/23 07:22 metformin AdvReac Intermediate Diarrhea Verified 08/12/23 07:22 Irxxkfd-[id number]-BgT Reductase AdvReac Intermediate NAUSEA/ABD. Verified 08/12/23 07:22 Inhibitor PAIN [Zgutxqu-Wun-Hvo Reductase Inhibitor] sitagliptin AdvReac Mild STOMACH Verified 08/12/23 07:22 UPSET Home Medications Medication Instructions Recorded Confirmed Type levothyroxine 100 mcg capsule 100 mcg PO DAILY #90 caps 06/14/20 08/12/23 Rx blood sugar diagnostic (Contour #100 ea 10/02/20 01/27/23 Rx Next Test Strips) blood-glucose meter (Contour Next #1 ea 10/02/20 01/27/23 Rx Meter) lancets (Microlet Lancet) #100 ea 10/02/20 01/27/23 Rx quetiapine 25 mg tablet 25 mg PO HS #90 tabs 11/24/20 08/12/23 Rx clonazepam 0.5 mg tablet 0.5 mg PO BID PRN ANXIETY #60 tabs 01/02/21 08/12/23 Rx Miralax 1 dose PO DAILY 11/29/21 08/12/23 History amlodipine 5 mg tablet 5 mg PO DAILY 06/09/23 08/12/23 History aspirin 81 mg tablet,delayed 81 mg PO DAILY 06/09/23 08/12/23 History release (Adult Low Dose Aspirin) lisinopril 20 mg tablet 20 mg PO DAILY 06/09/23 08/12/23 History hydrocodone 5 mg-acetaminophen 325 1 tablet PO DAILY PRN pain 30 days 07/23/23 08/12/23 Rx mg tablet #30 tabs Laboratory Tests 08/12/23 07:27 POC Capillary Glucose 114 H mg/dl (65-105) Patient hx anesthesia problems: none Family hx anesthesia problems: none Results Review: All pre-operative results and documents have been reviewed as part of the pre-operative evaluation. [facility] Past Medical History Medical History Chicken pox Diabetes Duodenal ulcer Generalized osteoarthritis of multiple sites GERD (gastroesophageal reflux disease) Hernia History of blood transfusion History of pulmonary embolism 2014 following Min fundoplication History of TIA (transient ischemic attack) HTN (hypertension) Hypoglycemia Hypothyroidism Inflammatory arthritis Kidney stones (~2015) history of lithotripsy in cysto. Meningioma Osteopenia Osteoporosis DEXA scan November 2019 Persistent dry cough Psychiatric care PTSD (post-traumatic stress disorder) Right knee pain SOB (shortness of breath) Thyroid disorder TIA (transient ischemic attack) Vitamin D deficiency disease Surgical History Surgical History H/O thyroidectomy (~2008) partial History of appendectomy (~1949) History of bilateral cataract extraction 2017 History of bowel resection due to twisted bowel 2007 History of hysterectomy (~1970) History of incisional hernia repair 11/20/2020 - Open mesh repair of periumbilical ventral incisional hernia with 8x8cm piece of polypropylene mesh applied in the recto-rectus position. Bilateral recto-rectus flaps 8x3cm in size. History of Min fundoplication (~2014) History of removal of both ovaries (~1983) History of tonsillectomy History of total knee arthroplasty January 2018 with resurfacing and poly exchange on 12/29/2019 History of total right knee replacement Oct
[2023-08-12] MEDS: LACTATED RINGERS 1,000 ML 30 ML IV CONT (08:15)
[2023-08-12] MEDS: LIDOCAINE HCL 2% PF INJ 5 ML VIAL INFILTRATE (08:51)
[2023-08-12 09:00] VITALS: BP 132/75; PULSE 82; RESP 16; O2SAT 100
--- NOTE | 2023-08-12 09:01 | WPDANESPN ---
Anes - Prog Note Post-Op Date/Time: 08/12/23 09:01 Cardiovascular status: normal Respiratory status: normal Airway patency: baseline Mental status: baseline Post-Op hydration status: normal Vital Signs: Last Vital Signs Temp 36.6 C 08/12/23 07:23 Pulse 106 H 08/12/23 07:23 Resp 20 08/12/23 07:23 BP 125/84 08/12/23 07:23 Pulse Ox 99 08/12/23 07:23 O2 Del Method Room Air 08/12/23 07:23 Pain Score (VAS): 0 08/12/23 07:27 POC Capillary Glucose 114 H Patient Feedback: Patient satisfied with anesthetic care.
[2023-08-12 09:30] VITALS: BP 138/71; PULSE 77; RESP 16; O2SAT 100
[2023-08-12 09:37] VITALS: BP 133/72; PULSE 84; RESP 16; O2SAT 99
== END 2023-08-12 09:40 | disposition home or self-care (01) ==
PROVIDERS: PCP Registered Nurse; Visit Provider Anesthesiology Pain Medicine
PROC: (CPT 64624; principal; 2023-08-12 08:15)
DX: T84.84XA Pain due to internal orthopedic prosthetic devices, implants and grafts, initial encounter (principal); M25.561 Pain in right knee; G89.4 Chronic pain syndrome
CPT/HCPCS: 64624; 64450; 99199

== ENCOUNTER 2023-09-29 03:39 | Day surgery (SDC) | payer OTHER, SELFPAY ==
--- NOTE | 2023-09-15 14:17 | PC.NURSE ---
Report to the Outpatient Waiting Room, entrance under the green pavilion located off [facility], at time 0930 on date __09/29/23 . Planned Procedure Time: ___1130 . Time changes happen often and if your time is changed the preop area will call you the afternoon before. - You and your visitor will be asked to self-screen and do not enter if you have any COVID symptoms. - A mask is optional within the hospital at this time. NOTHING TO EAT OR DRINK AFTER MIDNIGHT PER DR FLETCHER Take the following medications with a SIP of water the morning of surgery: __LEVOTHYROXINE DO NOT STOP ANY OF YOUR OTHER PRESCRIPTION MEDICATIONS PRIOR TO SURGERY ?EXCEPT THE FOLLOWING Medications to discontinue per physician ___NONE SHOWER/BATH EVENING BEFORE AND MORNING OF SURGERY PER DR FLETCHER Please no make-up, nail romansh, hairspray, perfume, deodorant, or body powder the day of surgery. No jewelry (including any body piercings) or valuables the day of surgery, leave them at home. Please take a shower or bath the night before, or the morning of, surgery with an antibacterial soap. Wear comfortable, loose fitting clothing. Children are encouraged to wear pajamas. - Jewelry must be removed prior to entering the operating room. Rings and piercings that are not removed may be cut off. - The hospital will not accept responsibility for valuables. - Please leave all valuables, including medications, at home the day of surgery. If you are going home after surgery, a licensed driver license examiner must drive you home. - NO public transportation without another adult if you receive anesthesia. - We recommend that an adult stay with you for 24 hours following discharge. - We also recommend that you do not drive, make important decision, drink alcoholic beverages, or take any drugs that were not prescribed by your health care provider for at least 24 hours after your discharge time. For Pediatric surgeries, we recommend two adults accompany the child home. Follow any additional instructions given to you from your surgeon. If you or anyone in your household have experienced Covid symptoms in the past week, please notify your surgeon or the nurse liaison at the phone number below for possible testing. Telephone instructions given to PT and asked if any additional questions and then verbalized understanding. Patient advised to call surgeon office or pre surgery nurse liaison [phone] if any additional questions.
[2023-09-15 14:22] VITALS: BMI 23.0
[2023-09-29] VITALS (8 sets, daily range): BP systolic 146–173; BP diastolic 55–80; PULSE 75–82; RESP 12–18; TEMP 36.6; O2SAT 100
--- NOTE | ~2023-09-29 | XR_ITS ---
EXAMINATION: XR fluoroscopy no charge DATE: 09/29/2023 11:58 INDICATION: Chronic right knee pain from internal orthopedic prosthetic device. TECHNIQUE: 13 intraoperative fluoroscopic views of the right knee were obtained. I was not present. F luoroscopy exposure time was 41 seconds. COMPARISON: Right knee radiographs 01/27/2023 FINDINGS: There is a total right knee arthroplasty with patellar resurfacing in near-anatomic alignme nt. There are electrodes at 4 locations about the knee. IMPRESSION: 1. Ablations at 4 locations about the knee. Reviewed, dictated and finalized at location A.
--- NOTE | 2023-09-29 07:13 | PM.HPGS ---
History of Present Illness History of Present Illness Consent: Risks, benefits, and alternatives have been discussed and questions answered. Patient agrees to proceed with procedure. 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 Review of Systems Review of Systems: Patient denies any new infectious, allergic, cardiopulmonary, neurologic or constitutional symptoms or changes in activity tolerance or exercise capacity including new or progressive SOB/WHALEY, peripheral edema, productive cough, dysuria, nausea/vomiting, diarrhea, weight change, fevers/chills/night sweats, new or progressive neurologic deficit, cognitive or mood changes since last seen, except as documented in the HPI. All systems reviewed & are unremarkable except as noted in HPI and below PMFSH Past Medical History Medical History Chicken pox Diabetes Duodenal ulcer Generalized osteoarthritis of multiple sites GERD (gastroesophageal reflux disease) Hernia History of blood transfusion History of pulmonary embolism 2014 following Min fundoplication History of TIA (transient ischemic attack) HTN (hypertension) Hypoglycemia Hypothyroidism Inflammatory arthritis Kidney stones (~2015) history of lithotripsy in cysto. Meningioma Osteopenia Osteoporosis DEXA scan November 2019 Persistent dry cough Psychiatric care PTSD (post-traumatic stress disorder) Right knee pain SOB (shortness of breath) Thyroid disorder TIA (transient ischemic attack) Vitamin D deficiency disease Surgical History Surgical History H/O thyroidectomy (~2008) partial History of appendectomy (~1949) History of bilateral cataract extraction 2017 History of bowel resection due to twisted bowel 2007 History of hysterectomy (~1970) History of incisional hernia repair 11/20/2020 - Open mesh repair of periumbilical ventral incisional hernia with 8x8cm piece of polypropylene mesh applied in the recto-rectus position. Bilateral recto-rectus flaps 8x3cm in size. History of Min fundoplication (~2014) History of removal of both ovaries (~1983) History of tonsillectomy History of total knee arthroplasty January 2018 with resurfacing and poly exchange on 12/29/2019 History of total right knee replacement January 2018 with patellar resurfacing December 29, 2019 Hx of colonoscopy with polypectomy December [address] Barrow Hx of cystoscopy with bilateral ureteral stents April 2015 Family History Family History Father Acute myocardial infarction Mother Acute myocardial infarction Colon cancer Sibling Hypertension Diabetes mellitus Crohn's disease Sibling Hypertension Daughter Hypertension Daughter Hypertension Other Family history of blood dyscrasia Social History Social History Social History: She uses marijuana every night. She has 3 daughters , for granddaughter's and 8 great grand children. Patient smoked 5 cigarettes a day for 3 years and quit 1969. She is . No alcohol. Primary care physician: Dr. Jamal Jordan Code status: Full code Durable power of consumer attorney: None Smoking status: Never smoker Second hand tobacco smoke exposure: No Additional smoking assessment
--- NOTE | 2023-09-29 07:19 | WPDHPUPDATE1 ---
History and Physical Update Update Date/Time: 09/29/23 07:19 History and Physical has been reviewed, including an updated exam of the patient. There are NO changes in the patient's condition. Risks, benefits, and alternatives have been discussed and questions answered. Patient agrees to proceed with procedure.
--- NOTE | 2023-09-29 07:21 | W.PM.PROC2 ---
Procedure Note - Detailed Date of Procedure 09/29/23 Pre-op Diagnosis pain from internal ortho prosth device, arthralgia right knee, chronic pain Post-op Diagnosis Same Procedure Performed Radiofrequency Ablation of the Right Superior Medial, Inferior Medial and Superior Lateral Genicular Nerves, Vastus Intermedius Nerve under Fluoroscopic Guidance (4 nerves ablated). Surgeon Dani Mojica MD Anesthesia General and Local Description of Procedure INFORMED CONSENT: Risks, benefits and alternatives to the procedure were discussed in detail with the patient who expressed explicit understanding and consent to proceed. Patient was informed verbally and in written form regarding the risks associated with the procedure including the low risk of serious infection, bleeding/bruising, allergic reaction, nerve injury, paralysis, procedural site pain or discomfort, worsening pain and/or mobility, failure to treat and disfigurement. The patient expressed explicit understanding and consent to proceed. All materials required for the procedure were available prior to procedure start. Site and side was marked prior to procedure and confirmed in the presence of the patient. PROCEDURE IN DETAIL: The patient was brought to the procedural suite and placed in the supine position. Patient was made comfortable with use of pillows under the head/shoulder, knees and ankles. Skin overlying anterior, medial and lateral surface of the knee joint on the right side was prepared broadly with ChloroPrep applicator and draped in a sterile manner. Aseptic technique was used throughout. The intersection between the femoral shaft and the medial femoral condyle, lateral femoral condyle and between the medial tibial plateau and tibial shaft were visualized in the AP view with the knee extended at 180 degrees. Local anesthesia was established by infiltration with approximately 3 mL of 2% lidocaine via a 1-1/2 inch 27-gauge needle at the skin and soft tissues overlying each site. One 17-gauge 100 mm [employer] water-cooled RF cannula was advanced until the needle tip contacted periosteum at the intersection of the medial femoral condyle and femoral shaft and advanced medially and posteriorly until approximating the position of the medial superior genicular nerve. Impedance levels were within normal limits. Motor testing was performed at a frequency of 2 Hz to a current of 3.0 mAmps through each needle with no evidence of motor stimulation. After negative aspiration, 2ml of a 1:1 admixture of 0.25% PF Bupivacaine and 2% lidocaine was injected at the intended site to establish anesthesia. Needle stylette was replaced with a water-cooled electrode from the occupational health physiotherapist-supplied kit. After a 90s delay, lesioning was then performed at the target site for 150s to a temperature of 60 degrees Centigrade. The needle was then retracted 10mm and repeat lesions were performed in a similar manner. [place] were then re-styletted and removed without difficulty. Needle was then repositioned to contact the periosteum at the location of the remaining targeted peripheral nerves and advanced medially and dorsally to approximate the position of the Inferior Medial Genicular nerve, laterally and dorsally to approximate the position of the Superior Lateral Genicular nerve just past midshaft in each location, and just above periosteum at the midline of the femoral shaft approximately 6cm superior to the superior patellar border to approximate the position of the vastus intermedius nerve. Images were saved and documented in the patient chart. Patient's skin was cleansed and sterile bandage applied. The patient tolerated the procedure well. The patient was transported to the recovery area in stable condition where they were observed for an appropriate amount of time prior to discharge, without evidence of complication. Patient was instructed on the appropriate completion of a pain diary over the next 12-24 hours. T
--- NOTE | 2023-09-29 10:37 | WPDANESEPPF ---
Anes - Initial Pre Proc Eval Procedure: Operation Date: 09/29/23 11:30 Proposed Procedures p Water Cooled Thermal Radio Frequency Ablation Right Genicular Nerve Times Three, Vastus Intermedius Nerve Times One Under Fluoroscopic Guidance - Dani Mojica MD Date/Time: 09/29/23 10:37 Surgeon: Dani Mojica MD Pre Op Diagnosis: pain from internal ortho prosth device Patient Data Age: 82 Gender: F Height: 1.52 m Weight: 54.75 kg Last Vital Signs Temp 98 F 09/29/23 10:24 Pulse 79 09/29/23 10:24 BP 156/55 H 09/29/23 10:24 Pulse Ox 100 09/29/23 10:24 O2 Del Method Room Air 09/29/23 10:24 Allergies Allergy/AdvReac Type Severity Reaction Status Date / Time glimepiride AdvReac Intermediate Diarrhea Verified 09/15/23 14:12 meloxicam AdvReac Intermediate diarrhea Verified 09/15/23 14:12 metformin AdvReac Intermediate Diarrhea Verified 09/15/23 14:12 Aqgaevo-MWI-JoL Reductase AdvReac Intermediate NAUSEA/ABD. Verified 09/15/23 14:12 Inhibitor PAIN [Jxfvkkn-Tmm-Omf Reductase Inhibitor] sitagliptin AdvReac Mild STOMACH Verified 09/15/23 14:12 UPSET Home Medications Medication Instructions Recorded Confirmed Type levothyroxine 100 mcg capsule 100 mcg PO DAILY #90 caps 06/14/20 09/15/23 Rx blood sugar diagnostic (Contour #100 ea 10/02/20 01/27/23 Rx Next Test Strips) blood-glucose meter (Contour Next #1 ea 10/02/20 01/27/23 Rx Meter) lancets (Microlet Lancet) #100 ea 10/02/20 01/27/23 Rx quetiapine 25 mg tablet 25 mg PO HS #90 tabs 11/24/20 09/15/23 Rx clonazepam 0.5 mg tablet 0.5 mg PO BID PRN ANXIETY #60 tabs 01/02/21 09/15/23 Rx Miralax 1 dose PO DAILY 11/29/21 09/15/23 History amlodipine 5 mg tablet 5 mg PO HS 06/09/23 09/15/23 History lisinopril 20 mg tablet 20 mg PO HS 06/09/23 09/15/23 History hydrocodone 5 mg-acetaminophen 325 1 tablet PO DAILY PRN pain 30 days 09/15/23 09/15/23 Rx mg tablet #30 tabs Patient hx anesthesia problems: none Family hx anesthesia problems: none Results Review: All pre-operative results and documents have been reviewed as part of the pre-operative evaluation. [facility] Past Medical History Medical History Chicken pox Diabetes Duodenal ulcer Generalized osteoarthritis of multiple sites GERD (gastroesophageal reflux disease) Hernia History of blood transfusion History of pulmonary embolism 2014 following Min fundoplication History of TIA (transient ischemic attack) HTN (hypertension) Hypoglycemia Hypothyroidism Inflammatory arthritis Kidney stones (~2015) history of lithotripsy in cysto. Meningioma Osteopenia Osteoporosis DEXA scan November 2019 Persistent dry cough Psychiatric care PTSD (post-traumatic stress disorder) Right knee pain SOB (shortness of breath) Thyroid disorder TIA (transient ischemic attack) Vitamin D deficiency disease Surgical History Surgical History H/O thyroidectomy (~2008) partial History of appendectomy (~1949) History of bilateral cataract extraction 2017 History of bowel resection due to twisted bowel 2007 History of hysterectomy (~1970) History of incisional hernia repair 11/20/2020 - Open mesh repair of periumbilical ventral incisional hernia with 8x8cm piece of polypropylene mesh applied in the recto-rectus position. Bilateral recto-rectus flaps 8x3cm in size. History of Min fundoplication (~2014) History of removal of both ovaries (~1983) History of tonsillectomy History of total knee arthroplasty January 2018 with resurfacing and poly exchange on 12/29/2019 History of total right knee replacement January 2018 with patellar resurfacing December 29, 2019 Hx of colonoscopy with polypectomy December [address] Barrow Hx of cystoscopy with bilateral ureteral stents April 2015 Family History Family History (Reviewed 08/12/23 @ 08:12 by
[2023-09-29] MEDS: LACTATED RINGERS 1,000 ML 30 ML IV CONT (11:00)
[2023-09-29] MEDS: LIDOCAINE HCL 2% PF INJ 5 ML VIAL 10 ML INFILTRATE (11:20)
[2023-09-29] MEDS: LIDOCAINE HCL 1% PF INJ 5 ML VIAL 10 ML INFILTRATE (11:22)
[2023-09-29] MEDS: fentaNYL CITRATE INJ (*CRX) 100 MCG/2 ML VIAL 25 MCG IV PUSH ×3 (12:06→12:22)
[2023-09-29] MEDS: oxyCODONE HCL (*CRX) 5 MG TAB IR PO (12:56)
== END 2023-09-29 13:55 | disposition home or self-care (01) ==
PROVIDERS: PCP Registered Nurse; Visit Provider Anesthesiology Pain Medicine
PROC: (CPT 64624; principal; 2023-09-29 11:30)
DX: T84.84XA Pain due to internal orthopedic prosthetic devices, implants and grafts, initial encounter (principal); M25.561 Pain in right knee; G89.29 Other chronic pain; Y83.8 Other surgical procedures as the cause of abnormal reaction of the patient, or of later complication, without mention of misadventure at the time of the procedure; I10 Essential (primary) hypertension; E55.9 Vitamin D deficiency, unspecified; E11.9 Type 2 diabetes mellitus without complications; K21.9 Gastro-esophageal reflux disease without esophagitis; M81.0 Age-related osteoporosis without current pathological fracture; F43.10 Post-traumatic stress disorder, unspecified; E89.0 Postprocedural hypothyroidism; F12.90 Cannabis use, unspecified, uncomplicated; Z87.891 Personal history of nicotine dependence; Z86.73 Personal history of transient ischemic attack (TIA), and cerebral infarction without residual deficits; Z86.711 Personal history of pulmonary embolism
CPT/HCPCS: 64624; 99199; A9270; J2405; J2704; J3010; J7120; Q9965